=== PATIENT | male | born 1930 | race Caucasian/White ===

== ENCOUNTER 2019-04-19 22:25 | Emergency (ER) | payer MEDICARE, OTHER ==
[~2019-04-19] VITALS: Ht 180.3 cm; Wt 62.1 kg
[~2019-04-19 22:25] MED LIST: AMLO5TAB10 PO; ASPI-630 PO; ATOR40TA59 PO; DOCU-109 PO; Enoxaparin Sodium SQ; GLIM1TAB3 PO; ISOS30TA4 PO; LISI-334 PO; METO25TA2 PO; METO50TA6 PO; POTA10TA12 PO; WARF-31 PO
[2019-04-19] MEDS ORDERED: HYDROcodone/APAP 5/325MG 1 TAB TABLET PO ONE (23:00)
[2019-04-19] MEDS ORDERED: diazePAM 5 MG TABLET PO ONE (23:00)
[2019-04-19 23:02] VITALS: BP 121/73
[2019-04-19] MEDS ORDERED: ACET-704 PO (23:27)
[2019-04-19] MEDS ORDERED: CYCL10TA2 PO (23:27)
--- NOTE | 2019-04-19 23:28 | PHYS DOC ---
Past Medical History Past Medical History: A-Fib, Cancer, COPD, Diabetes-Type II, GERD, High C holesterol, Hypertension Additional Past Medical Histor: CURRENT UNTREATED BLADDER CANCER (TEE PAUL APRN) Past Surgical History: Appendectomy, Other Additional Past Surgical Histo: BLADDER TUMOR REMOVAL 3 YEARS AGO (TEE PAUL APRN) Alcohol Use: None Drug Use: None (TEE PAUL APRN) Adult General Chief Complaint Chief Complaint: HIP PAIN HPI HPI Patient is a 88 year old male with history of A. fib-on Coumadin, hypertension, high cholesterol, diabetes type 2, who presents to the ED today complaining of 10 out of 10 left low back pain radiating to the left hip into the left lower extremity that began a week ago, patient denies any known injury. Denies any numbness or tingling to bilateral lower extremities, denies any loss of bowel bladder function. Patient is in the ED with the doctor who reports patient was seen by the PCP, they did x-rays which were negative. He was instructed to take Tylenol thousand milligrams 3 times a day which he is taking with no relief. He states he cannot take any NSAIDs because is already on Coumadin. (TEE PAUL APRN) Review of Systems Review of Systems Constitutional: Denies fever or chills [] GI: Denies abdominal pain, nausea, vomiting, bloody stools or diarrhea [] : Denies dysuria or hematuria [] Musculoskeletal: Reports left low back pain radiating to the left lower extremity Integument: Denies rash or skin lesions [] Neurologic: Denies headache, focal weakness or sensory changes [] All other systems were reviewed and found to be within normal limits, except as documented in this note. (TEE PAUL APRN) Current Medications Current Medications Current Medications Medications (Trade) Dose Ordered Sig/Mimi Start Time Stop Time Status Last Admin Dose Admin Acetaminophen/ Hydrocodone Bitart (Lortab 5/325) 1 tab 1X ONCE 04/19/19 23:00 04/19/19 23:01 DC 04/19/19 23:09 1 TAB Diazepam (Valium) 5 mg 1X ONCE 04/19/19 23:00 04/19/19 23:01 DC 04/19/19 23:09 5 MG (PARIS GAMBLE MD) Allergies Allergies Allergies Coded Allergies Type Severity Reaction Last Updated Verified Penicillins Allergy Intermediate 08/07/14 Yes (PARIS GAMBLE MD) Physical Exam Physical Exam Constitutional: Well developed, well nourished, no acute distress, non-toxic appearance. [] Abdomen: Bowel sounds normal, soft, no tenderness, no masses, no pulsatile masses. [] Skin: Warm, dry, no erythema, no rash. Bedbugs noted crawling on patient's c lothes Back: No tenderness, no CVA tenderness. [] Extremities: No tenderness, no cyanosis, no clubbing, ROM intact, no edema. Positive straight leg raise to the left lower extremity at approximately 45� Neurologic: Alert and oriented X 3, normal motor function, normal sensory function, no focal deficits noted. [] Psychologic: Affect normal, judgement normal, mood normal. [] (TEE PAUL APRN) Current Patient Data Vital Signs Vital Signs Date Time Temp Pulse Resp B/P (MAP) Pulse Ox O2 Delivery O2 Flow Rate FiO2 04/19/19 23:02 65 18 121/73 (89) 97 Room Air 04/19/19 22:26 97.9 97.9 (PARIS GAMBLE MD) EKG EKG [] (TEE PAUL APRN) Radiology/Procedures Radiology/Procedures [] (TEE PAUL APRN) Course & Med Decision Making Course & Med Decision Making Pertinent Labs and Imaging studies reviewed. (See chart for details) This is a 88-year-old male patient presenting to the ED today with left low back pain radiating to the left lower extremity that began a week ago, patient has been seen by the PCP and had negative x-rays. Was instructed to take Tylenol, patient is not attaining any relief with Tylenol. He has no cauda equina syndrome symptoms. I sent him home with Tylenol 3 and cyclobenzaprine. He is on Coumadin and cannot do NSAIDs. Recommended following up with the PCP next week. (TEE PAUL APRN) Course & Med Decision Making Staff Physician Addendum: I was working in the ER during the course of this patient's visit. I was available for consultation as needed, but I was not directly involved in the care of this patient. (PARIS GAMBLE MD) Dragon Disclaimer Dragon Disclaimer This electronic medical record was generated, in whole or in part, using a voice recognition dictation system. (TEE PAUL APRN) Departure Departure Impression: Primary Impression: Sciatica, left side Disposition: 01 HOME, SELF-CARE Condition: STABLE Referrals: ARACELI ROBINS (PCP) follow up next week Patient Instructions: Sciatica, Whpt-no-Seip Additional Instructions: You were evaluated in the emergency room for sciatica. Take the prescribed medications as ordered, consider getting a heating pad for your back. Follow-up with your doctor next week. Scripts Acetaminophen With Codeine (TYLENOL WITH CODEINE #3 TABLET) 1 Each Tablet 1 TAB PO PRN Q6HRS PRN for PAIN, #20 TAB Prov: TEE PAUL APRN 04/19/19 Cyclobenzaprine Hcl (CYCLOBENZAPRINE HCL) 10 Mg Tablet 1 TAB PO TID, #30 TAB Prov: TEE APUL APRN 04/19/19 TEE PAUL APRN Apr 19, 2019 23:27 PARIS GAMBLE MD Apr 20, 2019 03:56
== END 2019-04-19 23:35 | disposition home or self-care (01) ==
LOC: ER 22:25
DX: M54.42 Lumbago with sciatica, left side (principal); I10 Essential (primary) hypertension; E78.00 Pure hypercholesterolemia, unspecified; I48.91 Unspecified atrial fibrillation; E11.9 Type 2 diabetes mellitus without complications; J44.9 Chronic obstructive pulmonary disease, unspecified; K21.9 Gastro-esophageal reflux disease without esophagitis; Z85.51 Personal history of malignant neoplasm of bladder
CPT/HCPCS: 99284

== ENCOUNTER 2019-04-21 13:30 | Inpatient (IN) | payer MEDICARE ==
[~2019-04-21] VITALS: Ht 180.3 cm; Wt 63.6 kg
[~2019-04-21 13:30] MED LIST changes: +ACET-704 PO; +CYCL10TA2 PO
[2019-04-21] MEDS ORDERED: dilTIAZem IV PUSH 25 MG/5 ML VIAL IVP ONE (14:00)
[2019-04-21 14:11] LABS: CALCIUM 9.7 mg/dL (8.5-10.1); CREATININE 1.8 mg/dL (0.7-1.3); GFR 35.8; POTASSIUM 4.7 mmol/L (3.5-5.1); PROTHROMBIN TIME PATIENT 27.4 SEC (11.7-14.0)
[2019-04-21 14:15] LABS: BASO # 0.1 x10^3/uL (0.0-0.2); BASO % 1 % (0-3); EOS % 0 % (0-3); HEMATOCRIT 31.4 % (39.0-53.0); HEMOGLOBIN 9.8 g/dL (13.0-17.5); LYMPH # 0.3 x10^3/uL (1.0-4.8); LYMPH % 5 % (24-48); MEAN CORPUSCULAR HEMOGLOBIN 24 pg (25-35); MEAN CORPUSCULAR HGB CONC 31 g/dL (31-37); MEAN CORPUSCULAR VOLUME 77 fL (79-100); MONO # 0.4 x10^3/uL (0.0-1.1); MONO % 5 % (0-9); NEUT # 6.4 x10^3/uL (1.8-7.7); NEUT % 89 % (31-73); PLATELET COUNT 338 x10^3/uL (140-400); RED CELL DISTRIBUTION WIDTH 17.5 % (11.5-14.5); WHITE BLOOD COUNT 7.1 x10^3/uL (4.0-11.0)
[2019-04-21 14:17] LABS: ALBUMIN 3.1 g/dL (3.4-5.0); ALBUMIN/GLOBULIN RATIO 0.7 (1.0-1.7); MAGNESIUM 1.4 mg/dL (1.8-2.4); TOTAL PROTEIN 7.8 g/dL (6.4-8.2)
--- NOTE | 2019-04-21 14:18 | RAD ---
Indication: Left hip pain TECHNIQUE: AP pelvis and 2 views of the left hip COMPARISON: None Findings/ impression: Symmetric bilateral hip joints without significant evidence of osteoarthritis. No acute fracture or dislocation. Significant distal colonic and rectal stool burden. Electronically signed by: Ab Jimenez DO (04/21/2019 2:15 PM) [facility]
--- NOTE | 2019-04-21 14:19 | RAD ---
Indication:Chest pain TECHNIQUE:Portable AP chest X-ray COMPARISON: 11/26/2015 FINDINGS: Heart is normal in size. Again seen a calcified left hilar lymph nodes. Lungs are clear. No pneumothorax or pleural effusion. Visualized bony thorax within normal limits. IMPRESSION: No acute pulmonary process. Electronically signed by: Ab Jimenez DO (04/21/2019 2:16 PM) [facility]
[2019-04-21 14:35] LABS: % BANDS 2 % (0-9); % BASOS 2 % (0-3); % LYMPHS 3 % (24-48); % MONOS 4 % (0-10); % SEGS 89 % (35-66); ANISOCYTOSIS SLIGHT; PLT ESTIMATE ADEQUATE (ADEQUATE)
[2019-04-21 14:36] LABS: HYPOCHROMIA SLIGHT
[2019-04-21 14:38] LABS: OVALOCYTES MOD; POIKILOCYTOSIS MOD; SCHISTOCYTES FEW
[2019-04-21 14:39] LABS: ACANTHOCYTES OCC; BURR CELLS OCC; MICROCYTOSIS SLIGHT
--- NOTE | 2019-04-21 15:11 | RAD ---
CT scan of the head without contrast 04/21/2019 Clinical History: Fall. Patient is on blood thinner. Technique: Unenhanced, contiguous, 5 mm axial sections were obtained through the head. One or more of the following individualized dose reduction techniques were utilized for this study: 1. Automated exposure control. 2. Adjustment of the mA and/or kV according to patient size. 3. Use of iterative reconstruction technique. Findings: There is generalized parenchymal atrophy. Areas of decreased attenuation are seen within the periventricular and subcortical white matter of both cerebral hemispheres consistent with areas of small vessel ischemic disease. No acute parenchymal abnormality is seen. No extra-axial fluid collection is noted. No skull fracture is seen. 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 Impression: No acute intracranial abnormality is seen. Electronically signed by: Joshua Tellez MD (04/21/2019 3:08 PM) [facility]
[2019-04-21] MEDS ORDERED: MAGNESIUM SULFATE 2GM 50 ML IV ONE (16:15)
[2019-04-21] MEDS ORDERED: fentaNYL PF VIAL 100 MCG/2 ML VIAL IVP ONE (16:15)
[2019-04-21] MEDS ORDERED: HYDROcodone/APAP 5/325MG 1 TAB TABLET PO ONE (16:15)
--- NOTE | 2019-04-21 16:35 | PHYS DOC ---
Past Medical History Past Medical History: A-Fib, Cancer, COPD, Diabetes-Type II, GERD, High Cholesterol, Hypertension Additional Past Medical Histor: CURRENT UNTREATED BLADDER CANCER Past Surgical History: Appendectomy, Other Additional Past Surgical Histo: BLADDER TUMOR REMOVAL 3 YEARS AGO Alcohol Use: None Drug Use: None Adult General Chief Complaint Chief Complaint: CHEST PAIN HPI HPI Patient is a 88 year old male patient who presents with his daughter with complaining of chest pain and fall. Patient complaining of left hip pain without injury for the last 2 weeks and seen in this emergency room 2 days ago and treated with pain medication with diagnose of pain. Patient states he has more pain today and was not able to walk around with wound care and because of severe pain had a fall. Patient also complaining of intermittent episodes of chest pain since this morning with substernal area without shortness of breath, radiation of pain, dizziness, palpitation, focal neuro deficit. Patient lost his girlfriend of 13 years about one week ago. Review of Systems Review of Systems Constitutional: Denies fever or chills [] Eyes: Denies change in visual acuity, redness, or eye pain [] HENT: Denies nasal congestion or sore throat [] Respiratory: Denies cough or shortness of breath [] Cardiovascular: No additional information not addressed in HPI [] GI: Denies abdominal pain, nausea, vomiting, bloody stools or diarrhea [] : Denies dysuria or hematuria [] Musculoskeletal: Denies back pain, reports joint pain [] Integument: Denies rash or skin lesions [] Neurologic: Denies headache, focal weakness or sensory changes [] Endocrine: Denies polyuria or polydipsia [] All other systems were reviewed and found to be within normal limits, except as documented in this note. Current Medications Current Medications Current Medications Medications (Trade) Dose Ordered Sig/Mimi Start Time Stop Time Status Last Admin Dose Admin Diltiazem HCl (Cardizem Iv Push) 10 mg 1X ONCE 04/21/19 14:00 04/21/19 14:02 DC 04/21/19 14:11 10 MG Magnesium Sulfate 50 ml @ 25 mls/hr 1X ONCE 04/21/19 16:15 04/21/19 18:14 Allergies Allergies Allergies Coded Allergies Type Severity Reaction Last Updated Verified Penicillins Allergy Intermediate 08/07/14 Yes Physical Exam Physical Exam Constitutional: Well nourished, mild distress, non-toxic appearance. [] HENT: Normocephalic, atraumatic. Eyes: Right artificial eye Neck: Normal range of motion, no tenderness, supple, no stridor. [] Cardiovascular: Irregularly irregular rhythm. with tachycardia, no murmur [] Lungs & Thorax: Bilateral breath sounds clear to auscultation [] Abdomen: Bowel sounds normal, soft, no tenderness, no masses, no pulsatile masses. [] Skin: Warm, dry, no erythema, no rash. [] Back: No tenderness, no CVA tenderness. [] Extremities: Left hip without tenderness, no cyanosis, no clubbing, ROM intact, no edema. [] Neurologic: Alert and oriented X 3, no focal deficits noted. [] Psychologic: Affect anxious, judgement normal, mood normal. [] Current Patient Data Vital Signs Vital Signs Date Time Temp Pulse Resp B/P (MAP) Pulse Ox O2 Delivery O2 Flow Rate FiO2 04/21/19 14:44 78 14 99/61 (74) 100 Nasal Cannula 2.0 04/21/19 13:35 99.0 99.0 Lab Values Laboratory Tests Test 04/21/19 13:45 White Blood Count 7.1 x10^3/uL (4.0-11.0) Red Blood Count 4.10 x10^6/uL (4.30-5.70) L Hemoglobin 9.8 g/dL (13.0-17.5) L Hematocrit 31.4 % (39.0-53.0) L Mean Corpuscular Volume 77 fL (79-100) L Mean Corpuscular Hemoglobin 24 pg (25-35) L Mean Corpuscular Hemoglobin Concent 31 g/dL (31-37) Red Cell Distribution Width 17.5 % (11.5-14.5) H Platelet Count 338 x10^3/uL (140-400) Neutrophils (%) (Auto) 89 % (31-73) H Lymphocytes (%) (Auto) 5 % (24-48) L Monocytes (%) (Auto) 5 % (0-9) Eosinophils (%) (Auto) 0 % (0-3) Basophils (%) (Auto) 1 % (0-3) Neutrophils # (Auto) 6.4 x10^3/uL (1.8-7.7) Lymphocytes # (Auto) 0.3 x10^3/uL (1.0-4.8) L Monocytes # (Auto) 0.4 x10^3/uL (0.0-1.1) Eosinophils # (Auto) 0.0 x10^3/uL (0.0-0.7) Basophils # (Auto) 0.1 x10^3/uL (0.0-0.2) Segmented Neutrophils % 89 % (35-66) H Band Neutrophils % 2 % (0-9) Lymphocytes % 3 % (24-48) L Monocytes % 4 % (0-10) Basophils % 2 % (0-3) Platelet Estimate Adequate (ADEQUATE) Hypochromasia Slight Poikilocytosis Mod Anisocytosis Slight Microcytosis Slight Ovalocytes Mod [place] Cells Occ Acanthocytes (Spur Cells) Occ Schistocytes Few Prothrombin Time 27.4 SEC (11.7-14.0) H Prothrombin Time INR 2.6 (0.8-1.1) H Sodium Level 136 mmol/L (136-145) Potassium Level 4.7 mmol/L (3.5-5.1) Chloride Level 98 mmol/L (98-107) Carbon Dioxide Level 26 mmol/L (21-32) Anion Gap 12 (6-14) Blood Urea Nitrogen 41 mg/dL (8-26) H Creatinine 1.8 mg/dL (0.7-1.3) H Estimated GFR (Cockcroft-Gault) 35.8 BUN/Creatinine Ratio 23 (6-20) H Glucose Level 212 mg/dL (70-99) H Calcium Level 9.7 mg/dL (8.5-10.1) Magnesium Level 1.4 mg/dL (1.8-2.4) L Total Bilirubin 1.0 mg/dL (0.2-1.0) Aspartate Amino Transferase (AST) 45 U/L (15-37) H Alanine Aminotransferase (ALT) 18 U/L (16-63) Alkaline Phosphatase 82 U/L (46-116) Creatine Kinase 55 U/L (39-308) Troponin I Quantitative < 0.017 ng/mL (0.000-0.055) ZI-Ote-Q-Type Natriuretic Peptide 3426 pg/mL (0-449) H Total Protein 7.8 g/dL (6.4-8.2) Albumin 3.1 g/dL (3.4-5.0) L Albumin/Globulin Ratio 0.7 (1.0-1.7) L Lipase 205 U/L (73-393) Laboratory Tests 04/21/19 13:45 Laboratory Tests 04/21/19 13:45 EKG EKG EKG interpreted by me. EKG at 1340 showed atrial fibrillation with RVR at rate of 108, abnormal left axis deviation, left anterior fascicular block, right bundle branch block, bifascicular block, no acute ST and T-wave elevation. Radiology/Procedures Radiology/Procedures [][address] [id number] IMAGING REPORT Signed PATIENT: ESTUARDO CHARLES: [id number] : 1930 LOCATION: ER AGE: 88 SEX: M EXAM STATUS: REG ER ORD. PHYSICIAN: MARION VILLARREAL MD REASON: chest pain PROCEDURE: PORTABLE CHEST 1V Indication:Chest pain TECHNIQUE:Portable AP chest X-ray COMPARISON: 11/26/2015 FINDINGS: Heart is normal in size. Again seen a calcified left hilar lymph nodes. Lungs are clear. No pneumothorax or pleural effusion. Visualized bony thorax within normal limits. IMPRESSION: No acute pulmonary process. Electronically signed by: Ab Jimenez DO (04/21/2019 2:16 PM) [facility] DICTATED and SIGNED BY: AB JIMENEZ DO DATE: 04/21/[address] [id number] IMAGING REPORT Signed PATIENT: ESTUARDO CHARLES: [id number] : 1930 LOCATION: ER AGE: 88 SEX: M EXAM STATUS: REG ER ORD. PHYSICIAN: MARION VILLARREAL MD REASON: FALL, ON BLOOD THINNER PROCEDURE: CT HEAD WO CONTRAST CT scan of the head without contrast 04/21/2019 Clinical History: Fall. Patient is on blood thinner. Technique: Unenhanced, contiguous, 5 mm axial sections were obtained through the head. One or more of the following individualized dose reduction techniques were utilized for this study: 1. Automated exposure control. 2. Adjustment of the mA and/or kV according to patient size. 3. Use of iterative reconstruction technique. Findings: There is generalized parenchymal atrophy. Areas of decreased attenuation are seen within the periventricular and subcortical white matter of both cerebral hemispheres consistent with areas of small vessel ischemic disease. No acute parenchymal abnormality is seen. No extra-axial fluid collection is noted. No skull fracture is seen. 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 Impression: No acute intracranial abnormality is seen. Electronically signed by: Phong Tellez MD (04/21/2019 3:08 PM) [facility] DICTATED and SIGNED BY: PHONG TELLEZ MD DATE: 04/21/19 1508 [facility] [address] [place] [address] IMAGING REPORT Signed PATIENT: ESTUARDO CHARLES SACCOUNT: [id number] : 1930 LOCATION: ER AGE: 88 SEX: M EXAM STATUS: REG ER ORD. PHYSICIAN: MARION VILLARREAL MD REASON: left hip pain. hx of sciatica PROCEDURE: HIP LEFT 2V WITH PELVIS Indication: Left hip pain TECHNIQUE: AP pelvis and 2 views of the left hip COMPARISON: None Findings/ impression: Symmetric bilateral hip joints without significant evidence of osteoarthritis. No acute fracture or dislocation. Significant distal colonic and rectal stool burden. Electronically signed by: Ab Jimenez DO (04/21/2019 2:15 PM) [facility] DICTATED and SIGNED BY: AB JIMENEZ DO DATE: 04/21/19 1415 Course & Med Decision Making Course & Med Decision Making Pertinent Labs and Imaging studies reviewed. (See chart for details) Patient requiring admission for further evaluation and treatment. Discussed with Dr. Garcia who is in agreement with admission. Discussed findings and plan with patient and family, who acknowledge understanding and agreement. Dragon Disclaimer Dragon Disclaimer This electronic medical record was generated, in whole or in part, using a voice recognition dictation system. Departure Departure Impression: Primary Impression: Atrial fibrillation with RVR Additional Impressions: Acute chest pain Hypomagnesemia Left hip pain Uncontrolled diabetes mellitus Congestive heart failure Anemia Renal insufficiency Generalized weakness Disposition: 09 ADMITTED INPATIENT (1351) Admitting Physician: Magda Garcia (accepted admission at 1551) Condition: IMPROVED Referrals: ARACELI ROBINS (PCP) The HEART Score for CP Pts HEART Score for Chest Pain: HEART Score for Chest Pain Response (Comments) Value History Moderately Suspicious 1 ECG Nonspecific Repolarizatio 1 Age > 65 2 Risk Factors >3 Risk Factors or Hx CAD 2 Troponin < Normal Limit 0 Total 6 Risk Factors: Risk Factors: DM, Current or recent (<one month) smoker, HTN, HLP, family history of CAD, obesity. Risk Scores: Score 0 - 3: 2.5% MACE over next 6 weeks - Discharge Home Score 4 - 6: 20.3% MACE over next 6 weeks - Admit for Clinical Observation Score 7 - 10: 72.7% MACE over next 6 weeks - Early Invasive Strategies Critical Care Time Critical care time was 50 minutes exclusive of procedures. Problem Qualifiers Additional Impressions: Uncontrolled diabetes mellitus Diabetes mellitus type: other specified (including LIZBET) Glycemic state: with hyperglycemia Qualified Codes: E13.65 - Other specified diabetes mellitus with hyperglycemia Congestive heart failure Heart failure type: unspecified Heart failure chronicity: unspecified Qualified Codes: I50.9 - Heart failure, unspecified Anemia Anemia type: unspecified type Qualified Codes: D64.9 - Anemia, unspecified MARION VILLARREAL MD Apr 21, 2019 16:35
[2019-04-21 17:40] LABS: BILIRUBIN,URINE NEGATIVE (NEG); CLARITY,URINE TURBID; COLOR,URINE YELLOW; NITRITE,URINE NEGATIVE (NEG); PROTEIN,URINE 100 mg/dL (NEG-TRACE); UROBILINOGEN,URINE 0.2 mg/dL (0.2 mg/dL)
[2019-04-21 18:00] LABS: BACTERIA,URINE FEW /HPF (0-FEW); WBC,URINE TNTC /HPF (0-4)
[2019-04-21 18:01] LABS: HYALINE CASTS, URINE MANY /HPF; SQUAMOUS EPITHELIAL CELL,UR OCC /LPF
[2019-04-21 19:15] VITALS: BP 152/85
[2019-04-21 19:30] VITALS: BP 120/84
[2019-04-21 19:45] VITALS: BP 138/81
[2019-04-21 20:00] VITALS: BP 142/74
[2019-04-21] MEDS ORDERED: WARF2.5T83 PO (20:28)
[2019-04-21] MEDS ORDERED: DEXTROSE 50% 25 GM / 50ML DISP.SYRIN. IV PRN (20:30)
[2019-04-21 21:00] VITALS: BP 132/71
[2019-04-21] MEDS ORDERED: CYCLOBENZAPRINE 10 MG TABLET. PO SCH (21:00)
[2019-04-21] MEDS ORDERED: DOCUSATE SODIUM 100 MG CAPSULE. PO SCH (21:00)
[2019-04-21] MEDS ORDERED: LISINOPRIL 20 MG TABLET PO SCH (21:00)
[2019-04-21] MEDS ORDERED: ATORVASTATIN CALCIUM 40 MG TABLET. PO SCH (21:15)
[2019-04-21] MEDS ORDERED: GLIMEPIRIDE 2 MG TABLET. PO SCH (21:15)
[2019-04-21] MEDS: fentaNYL PF VIAL 100 MCG/2 ML VIAL IVP PRN (21:35)
[2019-04-21] MEDS: ACETAMINOPHEN/CODEINE 300/30MG TABLET. PO PRN (21:35)
[2019-04-21 22:00] VITALS: BP 126/94
--- NOTE | 2019-04-21 23:00 | NUR ---
Pt brought to room 113 by ED nurse on bed. Pt stood up and transferred to toilet then bed with 2x assist and walker. Pt reports 8-10/10 pain with left leg/hip movement, causing increased weakness with ambulation. Pts LCTA, VSS, afebrile. Pt stated "The only reason I'm here is to control this pain in my leg. I have nothing else to complain about. I was told my cancer would kill me in 3-6 months and here I am, three years later." Pt requested and received boxed meal after getting settled in the room. Pt does not have medication list with him and stated "You guys should have all my medications I take." Call placed to Dr. Garcia for pain medication to be ordered. Dr. Garcia restarted home meds in the system and started Fentanyl 25 mcg Q4hrs. The RN pulled pt HS meds. Pt stated he no longer takes Lisinopril or Metoprolol, but was unable to state both names and dosages of all meds. The internal communications writer called and spoke with Dr. Garcia again. MD stated "wait until morning then confirm med list with pts daughter. For now, just give pain medication." Pain medications administered PRN. All other medications placed on hold at this time. Pt refused for sliding scale insulin to be put into place. Pt stated "I will only take my oral diabetes medication." Pts BG 191 after eating box dinner. Pt currently resting in bed with eyes closed and call light within reach. Pt reported that between the Fentanyl and Tylenol #3, pain is controlled at this time. Will continue to monitor.
[2019-04-22] VITALS (7 sets, daily range): BP systolic 116–167; BP diastolic 66–87
[2019-04-22] MEDS: ACETAMINOPHEN/CODEINE 300/30MG TABLET. PO PRN ×2 (02:56→22:39)
[2019-04-22] MEDS: fentaNYL PF VIAL 100 MCG/2 ML VIAL IVP PRN (02:56)
[2019-04-22 05:01] LABS: PROTHROMBIN TIME PATIENT 29.9 SEC (11.7-14.0)
[2019-04-22 05:16] LABS: CALCIUM 8.9 mg/dL (8.5-10.1); CREATININE 1.3 mg/dL (0.7-1.3); GFR 52.1; POTASSIUM 4.1 mmol/L (3.5-5.1)
--- NOTE | 2019-04-22 06:26 | EKG ---
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
--- NOTE | 2019-04-22 06:49 | NUR ---
Called and left a message with pts DPOA regarding bringing in med list. Phone number confirmed with patient. Will pass on.
[2019-04-22] MEDS ORDERED: GLIMEPIRIDE 2 MG TABLET. PO SCH (09:00)
[2019-04-22] MEDS ORDERED: POTASSIUM CHLORIDE 10 MEQ TABLET.ER. PO SCH (09:00)
[2019-04-22] MEDS ORDERED: METOPROLOL SUCC 24HR ER 25 MG TAB.ER.24H. PO SCH (09:00)
[2019-04-22] MEDS ORDERED: ASPIRIN CHEWABLE 81 MG TABLET. PO SCH (09:00)
[2019-04-22] MEDS ORDERED: ATORVASTATIN CALCIUM 40 MG TABLET. PO SCH (09:00)
[2019-04-22] MEDS ORDERED: WARFARIN 5 MG TABLET. PO SCH ×2 (09:00→16:00)
[2019-04-22] MEDS ORDERED: amLODIPine BESYLATE 5 MG TABLET PO SCH (09:00)
--- NOTE | 2019-04-22 09:55 | PDOC2 ---
JAXONTHOR Harinder [employer] 04/22/19 0955: CONSULT Date of Consult Date of Consult DATE: 04/22/19 TIME: 09:33 Reason for Consult Reason for Consult: Patient with complaint of left hip pain without history of trauma. Referring Physician Referring Physician: Dr Garcia Identification/Chief Complaint Chief Complaint Left hip pain with reported fall but no specific injury, Source Source: Chart review, Patient History of Present Illness Reason for Visit: Patient with no specific injury but reported diffuse left hip pain for approximately 2 weeks. Past Medical History Cardiovascular: CAD, HTN, Hyperlipidemia Pulmonary: COPD CENTRAL NERVOUS SYSTEM: Other GI: GERD Heme/Onc: No pertinent hx Hepatobiliary: No pertinent hx Psych: No pertinent hx Musculoskeletal: Osteoarthritis Rheumatologic: No pertinent hx Infectious disease: No pertinent hx Renal/: Benign prostatic enlarg., Bladder Ca. Endocrine: Diabetes Past Surgical History Past Surgical History: Appendectomy Family History Family History: Coronary Artery Disease Social History ALCOHOL: none Drugs: None Lives: with Family Domestic Violence: Neg Current Problem List Problem List Problems Medical Problems: (1) Acute chest pain Status: Acute (2) Anemia Status: Acute (3) Atrial fibrillation with RVR Status: Acute (4) Congestive heart failure Status: Acute (5) Generalized weakness Status: Acute (6) Hypomagnesemia Status: Acute (7) Left hip pain Status: Acute (8) Renal insufficiency Status: Acute (9) Uncontrolled diabetes mellitus Status: Acute Current Medications Current Medications Current Medications Diltiazem HCl (Cardizem Iv Push) 10 mg 1X ONCE IVP Last administered on 04/21/19at 14:11; Start 04/21/19 at 14:00; Stop 04/21/19 at 14:02; Status DC Magnesium Sulfate 50 ml @ 25 mls/hr 1X ONCE IV Last administered on 04/21/19at 16:09; Start 04/21/19 at 16:15; Stop 04/21/19 at 18:14; Status DC Acetaminophen/ Hydrocodone Bitart (Lortab 5/325) 1 tab 1X ONCE PO ; Start 04/21/19 at 16:15; Stop 04/21/19 at 16:18; Status DC Fentanyl Citrate (Fentanyl 2ml Vial) 50 mcg 1X ONCE IVP Last administered on 04/21/19at 16:25; Start 04/21/19 at 16:15; Stop 04/21/19 at 16:18; Status DC Acetaminophen/ Codeine Phosphate (Tylenol #3) 1 tab PRN Q6HRS PRN PO PAIN Last administered on 04/22/19at 02:56; Start 04/21/19 at 20:30 Amlodipine Besylate (Norvasc) 5 mg DAILY PO ; Start 04/22/19 at 09:00; Status Hold Aspirin (Children'S Aspirin) 81 mg DAILY PO ; Start 04/22/19 at 09:00; Status Hold Atorvastatin Calcium (Lipitor) 40 mg DAILY PO ; Start 04/22/19 at 09:00; Stop 04/21/19 at 21:05; Status DC Cyclobenzaprine HCl (Flexeril) 10 mg TID PO ; Start 04/21/19 at 21:00; Status Hold Docusate Sodium (Colace) 100 mg BID PO ; Start 04/21/19 at 21:00; Stop 04/22/19 at 00:29; Status DC Lisinopril (Prinivil) 20 mg BID PO ; Start 04/21/19 at 21:00; Status Hold Metoprolol Succinate (Toprol Xl) 25 mg DAILY PO ; Start 04/22/19 at 09:00; Status Hold Potassium Chloride (Klor-Con) 10 meq DAILY PO ; Start 04/22/19 at 09:00; Status Hold Warfarin Sodium (Coumadin) 5 mg DAILY PO ; Start 04/22/19 at 09:00; Stop 04/21/19 at 20:38; Status DC Glimepiride (Amaryl) 1 mg DAILY PO ; Start 04/22/19 at 09:00; Stop 04/21/19 at 21:05; Status DC Fentanyl Citrate (Fentanyl 2ml Vial) 25 mcg PRN Q4HRS PRN IVP PAIN Last administered on 04/22/19at 02:56; Start 04/21/19 at 20:30 Dextrose (Dextrose 50%-Water Syringe) 12.5 gm PRN Q15MIN PRN IV SEE COMMENTS; Start 04/21/19 at 20:30 Warfarin Sodium (Coumadin) 5 mg DAILY16 PO ; Start 04/22/19 at 16:00; Status Hold Warfarin Sodium (Coumadin Per Physician) 1 each PRN DAILY PRN MC SEE COMMENTS; Start 04/21/19 at 20:45 Atorvastatin Calcium (Lipitor) 40 mg QHS PO ; Start 04/21/19 at 21:15; Status Hold Glimepiride (Amaryl) 1 mg QHS PO ; Start 04/21/19 at 21:15; Status Hold Active Scripts Active Tylenol With Codeine #3 Tablet (Acetaminophen/Codeine Phosphate) 1 Each Tablet 1 Tab PO PRN Q6HRS PRN Cyclobenzaprine Hcl 10 Mg Tablet 1 Tab PO TID Warfarin Sodium 5 Mg Tablet 1 Tab PO DAILY [Enoxaparin Sodium] 80 MG/0.8 ML Disp.syrin 70 Mg SQ Q12HR 3 Days Colace (Docusate Sodium) 100 Mg Capsule 100 Mg PO BID Toprol Xl (Metoprolol Succinate) 25 Mg Tab.er.24h 25 Mg PO DAILY Reported Coumadin (Warfarin Sodium) 2.5 Mg Tablet 1 Tab PO DAILY Glimepiride 1 Mg Tablet 1 Tab PO DAILY Atorvastatin Calcium 40 Mg Tablet 1 Tab PO DAILY Aspirin 81 Mg Tab.chew 1 Tab PO DAILY Amlodipine Besylate 5 Mg Tablet 1 Tab PO DAILY Lisinopril 20 Mg Tablet 1 Tab PO BID Potassium Chloride 10 Meq Tablet.er 1 Tab PO DAILY Allergies Allergies: Coded Allergies: Penicillins (Verified Allergy, Intermediate, 08/07/14) Physical Exam General: Oriented X3, Cooperative, mild distress Extremities: Normal pulses, No tenderness/swelling Neuro: Other (antalgic gait when walking with walker) MUSCULOSKELETAL: No joint tenderness, No swelling, Full range of motion without pain (Patient with tansient pain that is in posterior calf on one exam and is not present in the next exam. Inconsistent history and difficult to pinpoint source of reported pain.) Vitals VITALS Vital Signs Date Time Temp Pulse Resp B/P (MAP) Pulse Ox O2 Delivery O2 Flow Rate FiO2 04/22/19 04:00 98.2 71 22 116/66 (83) 99 Room Air 98.2 04/21/19 17:00 2.0 Labs Labs Laboratory Tests Test 04/21/19 13:45 04/21/19 17:28 04/21/19 18:40 04/21/19 21:51 White Blood Count 7.1 x10^3/uL (4.0-11.0) Red Blood Count 4.10 x10^6/uL (4.30-5.70) Hemoglobin 9.8 g/dL (13.0-17.5) Hematocrit 31.4 % (39.0-53.0) Mean Corpuscular Volume 77 fL (79-100) Mean Corpuscular Hemoglobin 24 pg (25-35) Mean Corpuscular Hemoglobin Concent 31 g/dL (31-37) Red Cell Distribution Width 17.5 % (11.5-14.5) Platelet Count 338 x10^3/uL (140-400) Neutrophils (%) (Auto) 89 % (31-73) Lymphocytes (%) (Auto) 5 % (24-48) Monocytes (%) (Auto) 5 % (0-9) Eosinophils (%) (Auto) 0 % (0-3) Basophils (%) (Auto) 1 % (0-3) Neutrophils # (Auto) 6.4 x10^3/uL (1.8-7.7) Lymphocytes # (Auto) 0.3 x10^3/uL (1.0-4.8) Monocytes # (Auto) 0.4 x10^3/uL (0.0-1.1) Eosinophils # (Auto) 0.0 x10^3/uL (0.0-0.7) Basophils # (Auto) 0.1 x10^3/uL (0.0-0.2) Segmented Neutrophils % 89 % (35-66) Band Neutrophils % 2 % (0-9) Lymphocytes % 3 % (24-48) Monocytes % 4 % (0-10) Basophils % 2 % (0-3) Platelet Estimate Adequate (ADEQUATE) Hypochromasia Slight Poikilocytosis Mod Anisocytosis Slight Microcytosis Slight Ovalocytes Mod Bryan Cells Occ Acanthocytes Occ Schistocytes Few Prothrombin Time 27.4 SEC (11.7-14.0) Prothromb Time International Ratio 2.6 (0.8-1.1) Sodium Level 136 mmol/L (136-145) Potassium Level 4.7 mmol/L (3.5-5.1) Chloride Level 98 mmol/L (98-107) Carbon Dioxide Level 26 mmol/L (21-32) Anion Gap 12 (6-14) Blood Urea Nitrogen 41 mg/dL (8-26) Creatinine 1.8 mg/dL (0.7-1.3) Estimated GFR (Cockcroft-Gault) 35.8 BUN/Creatinine Ratio 23 (6-20) Glucose Level 212 mg/dL (70-99) Calcium Level 9.7 mg/dL (8.5-10.1) Magnesium Level 1.4 mg/dL (1.8-2.4) Total Bilirubin 1.0 mg/dL (0.2-1.0) Aspartate Amino Transf (AST/SGOT) 45 U/L (15-37) Alanine Aminotransferase (ALT/SGPT) 18 U/L (16-63) Alkaline Phosphatase 82 U/L (46-116) Creatine Kinase 55 U/L (39-308) Troponin I Quantitative < 0.017 ng/mL (0.000-0.055) < 0.017 ng/mL (0.000-0.055) LC-Erv-N-Type Natriuretic Peptide 3426 pg/mL (0-449) Total Protein 7.8 g/dL (6.4-8.2) Albumin 3.1 g/dL (3.4-5.0) Albumin/Globulin Ratio 0.7 (1.0-1.7) Lipase 205 U/L (73-393) Urine Collection Type Unknown Urine Color Yellow Urine Clarity Turbid Urine pH 5.0 Urine Specific [place] 1.020 Urine Protein 100 mg/dL (NEG-TRACE) Urine Glucose (UA) Negative mg/dL (NEG) Urine Ketones (Stick) Negative mg/dL (NEG) Urine Blood Large (NEG) Urine Nitrite Negative (NEG) Urine Bilirubin Negative (NEG) Urine Urobilinogen Dipstick 0.2 mg/dL (0.2 mg/dL) Urine Leukocyte Esterase Small (NEG) Urine RBC 11-20 /HPF (0-2) Urine WBC Tntc /HPF (0-4) Urine Squamous Epithelial Cells Occ /LPF Urine Bacteria Few /HPF (0-FEW) Urine Hyaline Casts Many /HPF Urine Mucus Marked /LPF Glucose (Fingerstick) 191 mg/dL (70-99) Test 04/21/19 22:00 04/22/19 03:45 04/22/19 09:09 Troponin I Quantitative < 0.017 ng/mL (0.000-0.055) Prothrombin Time 29.9 SEC (11.7-14.0) Prothromb Time International Ratio 2.9 (0.8-1.1) Sodium Level 137 mmol/L (136-145) Potassium Level 4.1 mmol/L (3.5-5.1) Chloride Level 100 mmol/L (98-107) Carbon Dioxide Level 28 mmol/L (21-32) Anion Gap 9 (6-14) Blood Urea Nitrogen 37 mg/dL (8-26) Creatinine 1.3 mg/dL (0.7-1.3) Estimated GFR (Cockcroft-Gault) 52.1 Glucose Level 125 mg/dL (70-99) Calcium Level 8.9 mg/dL (8.5-10.1) Magnesium Level 2.0 mg/dL (1.8-2.4) Glucose (Fingerstick) 57 mg/dL (70-99) Laboratory Tests Test 04/21/19 13:45 04/21/19 17:28 04/21/19 18:40 04/21/19 21:51 White Blood Count 7.1 x10^3/uL (4.0-11.0) Red Blood Count 4.10 x10^6/uL (4.30-5.70) Hemoglobin 9.8 g/dL (13.0-17.5) Hematocrit 31.4 % (39.0-53.0) Mean Corpuscular Volume 77 fL (79-100) Mean Corpuscular Hemoglobin 24 pg (25-35) Mean Corpuscular Hemoglobin Concent 31 g/dL (31-37) Red Cell Distribution Width 17.5 % (11.5-14.5) Platelet Count 338 x10^3/uL (140-400) Neutrophils (%) (Auto) 89 % (31-73) Lymphocytes (%) (Auto) 5 % (24-48) Monocytes (%) (Auto) 5 % (0-9) Eosinophils (%) (Auto) 0 % (0-3) Basophils (%) (Auto) 1 % (0-3) Neutrophils # (Auto) 6.4 x10^3/uL (1.8-7.7) Lymphocytes # (Auto) 0.3 x10^3/uL (1.0-4.8) Monocytes # (Auto) 0.4 x10^3/uL (0.0-1.1) Eosinophils # (Auto) 0.0 x10^3/uL (0.0-0.7) Basophils # (Auto) 0.1 x10^3/uL (0.0-0.2) Segmented Neutrophils % 89 % (35-66) Band Neutrophils % 2 % (0-9) Lymphocytes % 3 % (24-48) Monocytes % 4 % (0-10) Basophils % 2 % (0-3) Platelet Estimate Adequate (ADEQUATE) Hypochromasia Slight Poikilocytosis Mod Anisocytosis Slight Microcytosis Slight Ovalocytes Mod Bryan Cells Occ Acanthocytes Occ Schistocytes Few Prothrombin Time 27.4 SEC (11.7-14.0) Prothromb Time International Ratio 2.6 (0.8-1.1) Sodium Level 136 mmol/L (136-145) Potassium Level 4.7 mmol/L (3.5-5.1) Chloride Level 98 mmol/L (98-107) Carbon Dioxide Level 26 mmol/L (21-32) Anion Gap 12 (6-14) Blood Urea Nitrogen 41 mg/dL (8-26) Creatinine 1.8 mg/dL (0.7-1.3) Estimated GFR (Cockcroft-Gault) 35.8 BUN/Creatinine Ratio 23 (6-20) Glucose Level 212 mg/dL (70-99) Calcium Level 9.7 mg/dL (8.5-10.1) Magnesium Level 1.4 mg/dL (1.8-2.4) Total Bilirubin 1.0 mg/dL (0.2-1.0) Aspartate Amino Transf (AST/SGOT) 45 U/L (15-37) Alanine Aminotransferase (ALT/SGPT) 18 U/L (16-63) Alkaline Phosphatase 82 U/L (46-116) Creatine Kinase 55 U/L (39-308) Troponin I Quantitative < 0.017 ng/mL (0.000-0.055) < 0.017 ng/mL (0.000-0.055) ZC-Tnz-H-Type Natriuretic Peptide 3426 pg/mL (0-449) Total Protein 7.8 g/dL (6.4-8.2) Albumin 3.1 g/dL (3.4-5.0) Albumin/Globulin Ratio 0.7 (1.0-1.7) Lipase 205 U/L (73-393) Urine Collection Type Unknown Urine Color Yellow Urine Clarity Turbid Urine pH 5.0 Urine Specific [place] 1.020 Urine Protein 100 mg/dL (NEG-TRACE) Urine Glucose (UA) Negative mg/dL (NEG) Urine Ketones (Stick) Negative mg/dL (NEG) Urine Blood Large (NEG) Urine Nitrite Negative (NEG) Urine Bilirubin Negative (NEG) Urine Urobilinogen Dipstick 0.2 mg/dL (0.2 mg/dL) Urine Leukocyte Esterase Small (NEG) Urine RBC 11-20 /HPF (0-2) Urine WBC Tntc /HPF (0-4) Urine Squamous Epithelial Cells Occ /LPF Urine Bacteria Few /HPF (0-FEW) Urine Hyaline Casts Many /HPF Urine Mucus Marked /LPF Glucose (Fingerstick) 191 mg/dL (70-99) Test 04/21/19 22:00 04/22/19 03:45 04/22/19 09:09 Troponin I Quantitative < 0.017 ng/mL (0.000-0.055) Prothrombin Time 29.9 SEC (11.7-14.0) Prothromb Time International Ratio 2.9 (0.8-1.1) Sodium Level 137 mmol/L (136-145) Potassium Level 4.1 mmol/L (3.5-5.1) Chloride Level 100 mmol/L (98-107) Carbon Dioxide Level 28 mmol/L (21-32) Anion Gap 9 (6-14) Blood Urea Nitrogen 37 mg/dL (8-26) Creatinine 1.3 mg/dL (0.7-1.3) Estimated GFR (Cockcroft-Gault) 52.1 Glucose Level 125 mg/dL (70-99) Calcium Level 8.9 mg/dL (8.5-10.1) Magnesium Level 2.0 mg/dL (1.8-2.4) Glucose (Fingerstick) 57 mg/dL (70-99) Images Images xray report indicates no significant osteoarthritis noted in either hip. Assessment/Plan Assessment/Plan 88 yo male with reported left hip pain for approximately 2 weeks. Exam unable to recreate pain. Patient states hurts in posterior calf at one moment then groin area on next exam. Patient states unable to walk while standing in room with walker. Patient recently lost significant other. Inconsistent history. Will order MRI left hip to r/o any missed fracture by xray. MARYA OKEEFE II, MD 04/22/19 1039: CONSULT History of Present Illness Reason for Visit: He is complaining of hip and posterior distal thigh pain that is intermittently worse, sometimes worse with weightbearing, sometimes it does not. No definite history of any trauma to the area. He feels the pain starts from his distal thig h and radiates towards his hip and groin at times. He denies any back pain or he denies any calf pain while walking Assessment/Plan Assessment/Plan Patient was seen and evaluated by myself. I examined the patient and review the imaging and formulated the treatment plan. I do think an MRI of his left femur is probably important and safest thing to do to be thorough in his care. TOHR COATES APRN Apr 22, 2019 09:55 MARYA OKEEFE II, MD Apr 22, 2019 10:39
--- NOTE | 2019-04-22 10:32 | PDOC ---
Provider Note Provider Note Pt seen.H&P dictated.#[id number]. WALTER RAYMOND MD Apr 22, 2019 10:32
--- NOTE | 2019-04-22 13:13 | HP ---
ADMIT DATE: 04/21/2019 MEDICAL HISTORY AND PHYSICAL LOCATION: 113. ATTENDING PHYSICIAN: Magda Raymond MD PRIMARY CARE PHYSICIAN: Dr. Andrew Anderson. REASON FOR ADMISSION TO THE HOSPITAL: Pain in the hip and the knee, not able to ambulate, rule out fracture. HISTORY OF PRESENT ILLNESS: The patient is an 88-year-old male, patient of Dr. Anderson, has history of chronic AFib, on Coumadin; diabetes; hypertension; bladder cancer and the patient's recently and says he is doing relatively well, but he had a fall and had more pain with ambulating and the patient was seen in the Emergency Room. X-ray did not reveal fracture, but is not able to ambulate well because of pain, was admitted for orthopedic evaluation and MRI. PAST MEDICAL HISTORY: AFib, bladder cancer, diabetes, hypertension, hyperlipidemia. PAST SURGICAL HISTORY: Appendix, also surgery for the bladder 3 years ago. ALLERGIES: PENICILLIN CAUSES HIVES. MEDICATIONS AT HOME: The patient is on amlodipine 5 mg daily, aspirin 81 mg daily, atorvastatin 40 mg daily, cyclobenzaprine 10 mg 3 times a day, Colace 100 mg daily, glimepiride 1 mg daily, lisinopril 20 mg twice a day, metoprolol 25 mg daily, potassium 10 mEq daily, Coumadin is 5 mg daily. PERSONAL HISTORY: Denies smoking, alcohol, drug abuse. REVIEW OF SYMPTOMS: CARDIAC: No chest pain. GASTROINTESTINAL: No nausea or vomiting. MUSCULOSKELETAL: Complains of pain in the hip and the knee. Rest of the 14-system was reviewed and negative. PHYSICAL EXAMINATION: VITAL SIGNS: Temperature 99, pulse 101, respirations 17, blood pressure 114/67, 94 on room air. HEENT: Head is atraumatic. Pupils equal. Oral cavity: No congestion. NECK: Supple. Thyroid not enlarged. JVD not elevated. CHEST: Symmetrical, COPD pattern. CARDIOVASCULAR: S1, S2. LUNGS: Clear to auscultation. No wheezing. ABDOMEN: Soft, bowel sounds present, no mass palpable. EXTERNAL GENITALIA: No Ortega. RECTAL: Deferred. EXTREMITIES: No calf tenderness, no edema. The patient has pain in the hip area when he extends or lifts the leg off the bed, able to bend his knee. LABORATORY DATA: White count 7, hemoglobin 10, platelets 338. INR 2.6. Electrolytes show sodium 136, potassium 4.7, chloride 98, bicarbonate 26, BUN 41, creatinine 1.8, glucose 212. Magnesium 1.4. Magnesium went up to 2 after replacement. Creatinine came down to 1.3 with fluids and urine shows too many white cells, [address] head was negative. Chest x-ray, no acute process. Had x-ray of the hip and pelvis, no evidence of fracture. FINAL IMPRESSION: 1. Mechanical fall. 2. Left hip pain, rule out fracture. 3. History of bladder cancer, had surgery.3 yrs ago. 4. Chronic atrial fibrillation, on Coumadin. INR is therapeutic. 5. Hypertension. PLAN: At this time is admit to hospital, was seen by Orthopedic, scheduled for MRI. PT/OT and continue Coumadin, monitor INR and see how he improves in the next 24-48 hours. MAGDA RAYMOND MD DR: JUAN DAVID/deshaun JOB#: [id number] / [id number] ANDREW Foy MTDMary Beth
--- NOTE | 2019-04-22 16:46 | NUR ---
SS following for discharge planning. SS reviewed pt chart. Pt is from home and is currently on room air. PT recommended home with assistance. OT ordered. SS will continue to follow for discharge planning.
--- NOTE | 2019-04-22 17:22 | RAD ---
MR of the left femur HISTORY: Thigh and groin pain. TECHNIQUE: Routine multiplanar sequences are obtained through the proximal and mid femur. FINDINGS: Abnormal marrow signal within the left pubic bone, extending into the adjacent superior and inferior pubic rami. There is some cortical ill-definition in this area, thought to be due to destruction. Mild adjacent intramuscular edema. There is also a partially visualized bone lesion at the medial acetabulum. The visualized proximal to mid femur appear intact without destruction or periosteal reaction. Focal atrophy and fatty replacement within the abductor vane muscle with mild edema within the remaining muscle. No organized fluid collection is seen. IMPRESSION: 1. Partially visualized bone lesions at the upper margins of the scan, involving the medial acetabulum, and also at the left pubic bone involving adjacent superior and inferior pubic ramus. These are most concerning for metastatic tumor or myeloma depending on clinical history. Recommend further evaluation, such as with dedicated MRI of the musculoskeletal pelvis and/or nuclear medicine bone scan. 2. Visualized femur appears unremarkable. Electronically signed by: Sacha Jenkins MD (04/22/2019 5:19 PM) [facility]
[2019-04-22] MEDS: WARFARIN 2.5 MG TABLET. PO SCH (17:28)
[2019-04-22] MEDS: CEPHALEXIN 250 MG CAPSULE. PO SCH ×2 (17:29→22:36)
[2019-04-23] VITALS (10 sets, daily range): BP systolic 93–139; BP diastolic 55–94
[2019-04-23] MEDS: CEPHALEXIN 250 MG CAPSULE. PO SCH ×3 (08:37→21:08)
--- NOTE | 2019-04-23 09:44 | PDOC ---
PROGRESS NOTES Subjective Subjective still has pain in hip Objective Objective Vital Signs Date Time Temp Pulse Resp B/P (MAP) Pulse Ox O2 Delivery O2 Flow Rate FiO2 04/23/19 07:00 97.7 67 16 135/63 (87) 97 Room Air 97.7 Intake and Output 04/23/19 06:59 Intake Total 785 ml Output Total 975 ml Balance -190 ml Intake Oral 785 ml Output Urine Total 975 ml # Voids 4 Physical Exam Abdomen: Normal bowel sounds, Soft Heart: Regular rate, Normal S1, Normal S2 Extremities: No clubbing, Normal pulses, No tenderness/swelling General: Oriented X3, Cooperative, mild distress MUSCULOSKELETAL: No joint tenderness, No swelling, Full range of motion without pain (Patient with tansient pain that is in posterior calf on one exam and is not present in the next exam. Inconsistent history and difficult to pinpoint source of reported pain.) Neck: Supple, No JVD Neuro: Normal speech, Other (antalgic gait when walking with walker) Skin: No breakdown Diagnosis Problem List Problems Medical Problems: (1) Acute chest pain Status: Acute (2) Anemia Status: Acute (3) Atrial fibrillation with RVR Status: Acute (4) Congestive heart failure Status: Acute (5) Generalized weakness Status: Acute (6) Hypomagnesemia Status: Acute (7) Left hip pain Status: Acute (8) Renal insufficiency Status: Acute (9) Uncontrolled diabetes mellitus Status: Acute Assessment Assessment Problems Medical Problems: (1) Acute chest pain Status: Acute (2) Anemia Status: Acute (3) Atrial fibrillation with RVR Status: Acute (4) Congestive heart failure Status: Acute (5) Generalized weakness Status: Acute (6) Hypomagnesemia Status: Acute (7) Left hip pain Status: Acute (8) Renal insufficiency Status: Acute (9) Uncontrolled diabetes mellitus Status: Acute FINAL IMPRESSION: 1. Mechanical fall. 2. Left hip pain, rule out fracture. 3. History of bladder cancer, had surgery. 4. Chronic atrial fibrillation, on Coumadin. INR is therapeutic. 5. Hypertension. PLAN: labs ok ,mild anemia abnormal pelvic bone suspecious for mets. h/o bladder cancer. will do ct scan +bone scan oncology consult. At this time is admit to hospital, was seen by Orthopedic, scheduled for MRI. PT/OT and continue Coumadin, monitor INR and see how he improves in the next 24-48 hours. Plan Plan of Care Problems Medical Problems: (1) Acute chest pain Status: Acute (2) Anemia Status: Acute (3) Atrial fibrillation with RVR Status: Acute (4) Congestive heart failure Status: Acute (5) Generalized weakness Status: Acute (6) Hypomagnesemia Status: Acute (7) Left hip pain Status: Acute (8) Renal insufficiency Status: Acute (9) Uncontrolled diabetes mellitus Status: Acute Comment Review of Relevant I have reviewed the following items mary (where applicable) has been applied. Labs Laboratory Tests Test 04/22/19 12:25 04/22/19 17:27 04/22/19 21:21 04/23/19 07:26 Glucose (Fingerstick) 185 mg/dL (70-99) 134 mg/dL (70-99) 138 mg/dL (70-99) 98 mg/dL (70-99) Medications Current Medications Cephalexin HCl (Keflex) 500 mg TID PO Last administered on 04/23/19at 08:37; Start 04/22/19 at 14:00 Warfarin Sodium (Coumadin) 2.5 mg DAILY16 PO Last administered on 04/22/19at 17:28; Start 04/22/19 at 16:00 Warfarin Sodium (Coumadin) 5 mg DAILY16 PO ; Start 04/22/19 at 16:00; Stop 04/22/19 at 12:49; Status DC Vitals/I & O Vital Sign - Last 24 Hours 04/22/19 04/22/19 04/22/19 04/22/19 12:00 17:24 19:45 19:51 Temp 97.7 97.8 97.9 97.7 97.8 97.9 Pulse 82 106 102 Resp 22 22 22 B/P (MAP) 145/79 (101) 141/87 (105) 137/82 (100) Pulse Ox 98 93 94 O2 Delivery Room Air Room Air Room Air Room Air 04/22/19 04/22/19 04/22/19 04/23/19 22:39 23:07 23:45 03:18 Temp 98.0 98.2 98.0 98.2 Pulse 69 60 Resp 20 20 19 B/P (MAP) 167/71 (103) 139/77 (97) Pulse Ox 93 96 94 95 O2 Delivery Room Air Room Air Room Air Room Air 04/23/19 07:00 Temp 97.7 97.7 Pulse 67 Resp 16 B/P (MAP) 135/63 (87) Pulse Ox 97 O2 Delivery Room Air Intake and Output 04/22/19 04/22/19 04/23/19 14:59 22:59 06:59 Intake Total 545 ml 240 ml Output Total 500 ml 475 ml Balance 545 ml -260 ml -475 ml WALTER RAYMOND MD Apr 23, 2019 09:44
[2019-04-23] MEDS ORDERED: IOHEXOL 240 MG/ML 50ML VIAL. PO ONE (10:15)
[2019-04-23] MEDS ORDERED: IOHEXOL 300 MG/ML 100ML VIAL. IV ONE (10:15)
--- NOTE | 2019-04-23 11:55 | RAD ---
PQRS Compliance Statement: One or more of the following individualized dose reduction techniques were utilized for this examination: 1. Automated exposure control 2. Adjustment of the mA and/or kV according to patient size 3. Use of iterative reconstruction technique CT CHEST ABD PELVIS W/CONTRAST 04/23/2019 9:41 AM INDICATION: Bladder cancer with bone metastasis COMPARISON: CT abdomen/pelvis 06/05/2015 TECHNIQUE: Multiple axial CT images of the chest, abdomen and pelvis were obtained after the intravenous administration of 60 mL Omnipaque 300. Coronal and sagittal reformats are provided. FINDINGS: Thyroid gland is normal in appearance. Calcified left hilar lymph nodes are identified. No pathologically enlarged thoracic lymph nodes are identified. Heart size is borderline enlarged. Thoracic aorta is ectatic measuring up to 4.0 cm. There is moderate calcified atheromatous plaque. Three-vessel coronary artery vascular calcifications are present. Centrally calcified solid pulmonary nodule identified in the superior segment right lower lobe measuring 4 mm suggestive of a calcified granuloma. No suspicious solid noncalcified pulmonary nodules are identified. There are no pleural effusions. No pulmonary vascular congestion or pneumothorax. Minimal bibasilar subsegmental atelectasis. Stable cyst in the lateral segment left hepatic lobe measuring 6 mm. Stable 13 mm hypoattenuating lesion in the lateral segment left hepatic lobe cyst of a simple cyst. Adjacent coarse calcification appears stable measuring up to 8 mm. New multiple hypoattenuating lesions are identified within the spleen measuring up to 6.8 x 6.4 cm. Spleen measures 15.6 cm in craniocaudal dimension. Adrenal glands are normal. Findings are suspicious for splenic metastatic disease. There is a single splenic mass which exerts mass effect on the posterior fundus of the stomach. Abdominal aorta is normal in course and caliber. There are no pathologically enlarged lymph nodes in abdomen and pelvis. There is no free fluid or free intraperitoneal air. There is a moderate-sized right inguinal hernia containing loops of nondilated small bowel and fluid. Rectal distention with stool measures 8.1 x 8.3 cm. Oral contrast was administered. Opacified bowel loops since her normal mucosal fold pattern. No bowel obstruction or inflammation. Appendix is not definitively visualized. No pericecal inflammatory changes are identified. Stable hypoattenuating lesion in the interpolar right kidney measuring 7.5 mm, presumed benign given long-term stability. No definite evidence for upper tract disease. Kidneys enhance symmetrically. No suspicious renal mass. There is a new polypoid mass within the urinary bladder along the left posterior lateral bladder wall measuring 5.2 x 5.1 x 3.5 cm (AP by transverse by craniocaudal). Calcification is associated with this mass. Prostate and seminal vesicles are normal. There is an ill-defined lytic lesion involving the medial aspect of the left pubic ramus which corresponds with marrow infiltrating mass. Additionally, there is a soft tissue mass involving the medial left acetabulum measuring approximately 2.0 x 2.1 x 2.1 cm (series 4, image 82) with soft tissue component extending into the joint space. Sclerotic bone lesion is identified involving the right iliac bone measuring 12 mm. IMPRESSION: 1. Dominant posterior, superior left lateral bladder wall mass measures 5.2 x 5.1 x 3.5 cm in keeping with provided history of bladder cancer. No definite evidence for upper tract disease. 2. New multifocal splenic lesions suspicious for metastatic disease. In an immunocompromised state, granulomatous disease or splenic abscesses may have similar appearance. 3. Osseous metastatic disease involving the left pubic ramus and left acetabulum with intra-articular extension to the left femoral acetabular joint. 4. No evidence for metastatic disease involving the chest. 5. Moderate-sized right inguinal hernia containing nondilated loops of small bowel and minimal fluid. 6. Rectal distention with fecal stasis. Correlate with constipation. Electronically signed by: Evelin Aviles MD (04/23/2019 11:52 AM) [facility]
[2019-04-23] MEDS: ISOSORBIDE MONONITRATE ER 30 MG TAB.ER.24H PO SCH (12:49)
[2019-04-23] MEDS: LACTOBACILLUS RHAMNOSUS GG 1 CAPSULE. PO SCH ×2 (12:49→21:07)
--- NOTE | 2019-04-23 15:39 | PDOC2 ---
PALLIATIVE CARE Palliative Care Note Palliative Care Consult requested by Dr Bañuelos to address goals of care Patient admitted with Left sciatic pain, history of badder cancer x3 years; mets to bone, HTN, DM2 GERD, increased lipids, CT chest and abdomen results; 1. Dominant posterior, superior left lateral bladder wall mass measures 5.2 x 5.1 x 3.5 cm in keeping with provided history of bladder cancer. No definite evidence for upper tract disease. 2. New multifocal splenic lesions suspicious for metastatic disease. In an immunocompromised state, granulomatous disease or splenic abscesses may have similar appearance. 3. Osseous metastatic disease involving the left pubic ramus and left acetabulum with intra-articular extension to the left femoral acetabular joint. 4. No evidence for metastatic disease involving the chest. 5. Moderate-sized right inguinal hernia containing nondilated loops of small bowel and minimal fluid. 6. Rectal distention with fecal stasis. Correlate with constipation. Radiation oncology pending Spoke with patient and daughter Ny Patient sitting up in chair; Mild to moderate hip pain. Plan family meeting tomorrow at 1400 when information available. YING BAL Apr 23, 2019 15:39
[2019-04-23] MEDS ORDERED: dilTIAZem IV PUSH 25 MG/5 ML VIAL IVP ONE (16:15)
[2019-04-23] MEDS: WARFARIN 2.5 MG TABLET. PO SCH (16:50)
--- NOTE | 2019-04-23 16:53 | PDOC2 ---
RONI LEONARDO SCROLL SAW OPERATOR 04/23/19 1653: CARDIAC CONSULT DATE OF CONSULT Date of Consult DATE: 04/23/19 TIME: 14:39 REASON FOR CONSULT Reason for Consult: AFIB RVR REFERRING PHYSICIAN Referring Physician: Jose SOURCE Source: Chart review, Patient HISTORY OF PRESENT ILLNESS HISTORY OF PRESENT ILLNESS This is a pleasant 88 yo male admitted for complains of increasing pain to left hip pain. This pain started almost a month ago. His fall was about 2 weeks ago while using his walker. Reports that he basically stumbled with his walker and landed on his butt. No fractures. Denies any chest pain or SOA but does verbalized palpitations. Upion further imaging he has been noted with significant constipation, bladder CA with bone metastasis. He is currently on AFIB RVR. He has not seen a second worker for at least 3 years. He is on warfarin for his AFIB. No prior hx of VTE but unclear about his hx of CAD. Denies frequent dizziness or passing out. PAST MEDICAL HISTORY Past Medical History Cardiovascular: CAD, HTN, Hyperlipidemia, AFIB,PAD Pulmonary: COPD CENTRAL NERVOUS SYSTEM: Other GI: GERD Heme/Onc: No pertinent hx Hepatobiliary: No pertinent hx Psych: No pertinent hx Musculoskeletal: Osteoarthritis Rheumatologic: No pertinent hx Infectious disease: No pertinent hx Renal/: Benign prostatic enlarg., Bladder Ca. Endocrine: Diabetes PAST SURGICAL HISTORY Past Surgical History: Appendectomy FAMILY HISTORY Family History: Coronary Artery Disease SOCIAL HISTORY Smoke: No ALCOHOL: none Drugs: None Lives: with Family CURRENT MEDICATIONS CURRENT MEDICATIONS Current Medications Medications (Trade) Dose Ordered Sig/Mimi Route PRN Reason Start Time Stop Time Status Last Admin Dose Admin Warfarin Sodium (Coumadin) 2.5 mg DAILY16 PO 04/22/19 16:00 04/22/19 17:28 Lactobacillus Rhamnosus (Culturelle) 1 cap BID PO 04/23/19 12:00 04/23/19 12:49 Iohexol (Omnipaque 240 Mg/ml) 50 ml 1X ONCE PO 04/23/19 10:15 04/23/19 10:16 DC 04/23/19 10:15 Iohexol (Omnipaque 300 Mg/ml) 60 ml 1X ONCE IV 04/23/19 10:15 04/23/19 10:16 DC 04/23/19 10:15 Isosorbide Mononitrate (Imdur) 30 mg DAILY PO 04/23/19 12:30 04/23/19 12:49 ALLERGIES ALLERGIES: Coded Allergies: Penicillins (Verified Allergy, Intermediate, 08/07/14) ROS Review of System 14 point ROS evaluated with pertinent positives noted per HPI PHYSICAL EXAM General: Alert, Oriented X3, Cooperative, No acute distress HEENT: Atraumatic, Mucous membr. moist/pink Lungs: Clear to auscultation, Normal air movement Heart: Other (AFIB RVR) Abdomen: Soft, No tenderness Extremities: No cyanosis, No edema Skin: No breakdown, No significant lesion Neuro: Normal speech, Sensation intact Psych/Mental Status: Mental status NL, Mood NL MUSCULOSKELETAL: Osteoarthritic changes both hands VITALS/I&O VITALS/I&O: Vital Signs Date Time Temp Pulse Resp B/P (MAP) Pulse Ox O2 Delivery O2 Flow Rate FiO2 04/23/19 16:02 148 20 Room Air 04/23/19 15:00 97.9 105/65 (78) 94 97.9 I & O 04/22/19 04/23/19 04/23/19 17:00 01:00 09:00 Intake Total 425 ml 240 ml 240 ml Output Total 150 ml 450 ml 375 ml Balance 275 ml -210 ml -135 ml LABS Lab: Laboratory Tests Test 04/22/19 17:27 04/22/19 21:21 04/23/19 07:26 04/23/19 12:35 Glucose (Fingerstick) 134 mg/dL (70-99) H 138 mg/dL (70-99) H 98 mg/dL (70-99) 116 mg/dL (70-99) H ECHOCARDIOGRAM ECHOCARDIOGRAM <Conclusion> The left ventricular systolic function is normal and the ejection fraction is within normal range. The Ejection Fraction is 55-60%. There is mild concentric left ventricular hypertrophy. The right atrium is mildly dilated. Doppler and Color Flow revealed mild aortic regurgitation. Doppler and Color-flow revealed mild mitral regurgitation. Doppler and Color Flow revealed mild to moderate tricuspid regurgitation. The pulmonary artery systolic pressure is estimated at 50-60 mmHg. The IVC is dilated and collapses >50% with inspiration. There is no evidence of significant pericardial effusion. DATE: 08/05/14 4466 ASSESSMENT/PLAN ASSESSMENT/PLAN 1. AFIB RVR: hx of AFIB chronic vs paroxysmal. Initially noted in 2014 2. Atypical chest pain: mainly due to palpitations. 3. Chronic anticoagulation: warfarin INR 2.9 4. Bladder CA with bone metastasis 5. Left hip with nontraumatic fall: 6. CAD: unclear details 7. HTN 8. HLP 9. 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 Continue with warfarin therapy 2. Cardizem bolus with drip 3. TTE, TSH, BMP and Mg. 4. Hemonc and ortho consulted. SHERRELL YU MD 04/23/19 1808: CARDIAC CONSULT ASSESSMENT/PLAN ASSESSMENT/PLAN Patient seen and examined. Agree with above nurse practitioner note. 88-year-old male with chronic atrial fibrillation with fall in the setting of multiple other comorbidities. Check routine echo. He may benefit from an outpatient event monitor to rule out any significant bradycardia. Supportive care for now. RONI LEONARDO APRN Apr 23, 2019 16:53 SHERRELL YU MD Apr 23, 2019 18:08
[2019-04-23] MEDS ORDERED: dilTIAZem INJ 125 MG in IV DEXTROSE 5% 100ML 100 ML IV PRN (17:15)
[2019-04-23 17:32] LABS: CALCIUM 9.2 mg/dL (8.5-10.1); CREATININE 1.4 mg/dL (0.7-1.3); GFR 47.8; POTASSIUM 4.6 mmol/L (3.5-5.1)
[2019-04-23] MEDS: METOPROLOL TART IMMED RELEASE 25 MG TABLET. PO SCH (19:20)
--- NOTE | 2019-04-23 20:36 | CONS ---
DATE OF CONSULTATION: 04/23/2019 REFERRING PHYSICIAN: Alejandro Bañuelos M.D. DIAGNOSIS: Bladder carcinoma treated with surgery alone at [facility] in 09/2016. Initial stage unknown at this time. He now has 2-week history of severe left hip pain with CT revealing recurrence in the bladder and metastatic disease in the left pubic bone and acetabulum. We were asked to see him regarding palliative radiation therapy in his care. ICD-10: C67.9, C79.51. HISTORY OF PRESENT ILLNESS: The patient is an 88-year-old gentleman living independently who has had progressive left hip pain over the last 2 weeks making it difficult to walk over the last week. He took Tylenol with no improvement. Pain exists from the hip to the thigh. He has had no prior history of trauma or falls. He has no pain elsewhere. His urinary function has been stable with no hematuria, no hesitancy, and good flow. He has constipation without other bowel symptoms. He has good appetite. Despite this, he has lost 24 pounds over the last 3 months. He has had no headache, nausea, or vomiting. No lower extremity weakness, numbness, or tingling. Following admission, he has undergone CT scan of the chest, abdomen, and pelvis. Chest reveals bilateral hilar lymph nodes with no overt adenopathy. No suspicious pulmonary nodules noted. Liver reveals no metastatic disease. Spleen reveals several low-density masses compatible with likely metastatic disease. Bladder reveals a 5-cm mass in the posterolateral wall of the bladder with central calcifications. There was a lytic lesion in the posterior aspect of the left pubic ramus with soft tissue mass. Another soft tissue mass was seen in the medial left acetabulum with soft tissue component going into the hip socket. No evidence for hydronephrosis was seen. Findings are compatible with local recurrence of bladder cancer with metastatic disease in the bone of the pubic and acetabular regions of the left pelvis. PAST MEDICAL HISTORY: Remarkable for coronary artery disease, hypertension, hyperlipidemia, COPD, osteoarthritis, and diabetes. CURRENT MEDICATIONS: See hospital list. ALLERGIES: PENICILLIN. FAMILY HISTORY: Brother from bladder cancer in his 60s, daughter here, Ny Solis, had a soft tissue sarcoma resected from her left biceps, treated with muscle-preserving conservative surgery and postoperative radiation therapy 8 years ago. SOCIAL HISTORY: He was 20 years ago. His girlfriend train crew member of 13 years last week. Prior to this, they were living independently together. 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 Nonsmoker and nondrinker. Prior to admission, he enjoyed going to the [employer] playing [employer] and [employer]. He has 9 children, 6 of whom are alive. His daughter, Ny Solis, is his durable power of shrimp peeling machine tender and she is here at this time. PHYSICAL EXAMINATION: GENERAL: Revealed an alert, cooperative, thin elderly man, in no acute distress, able to provide historic information accurately. HEENT: Unremarkable. He had no scleral icterus. LYMPH NODES: He had no palpable cervical or supraclavicular adenopathy. LUNGS: Clear. HEART: Regular. ABDOMEN: No hepatomegaly, masses, or tenderness. EXTREMITIES: Reveal no clubbing, cyanosis, or edema. NEUROLOGIC: Lower extremity strength and sensation intact. Gait, however, was not tested. LABORATORY STUDIES: On 04/21/2019, hemoglobin 9.8, white count 7100, platelet count 338,000. Chemistry panel was unremarkable. Baseline creatinine was 1.3. Calcium level was normal. ASSESSMENT AND PLAN: In summary, my impression is that of locally recurrent and metastatic carcinoma of the bladder. He has bulky primary recurrence and symptomatic metastatic disease in the left acetabulum. At this time, I felt it was rational to consider treatment to the two bone metastases in conjunction with treatment to the recurrent primary site as they are all in close proximity to each other and the addition of treatment to all sites would add minimal toxicity over treatment of the acetabulum alone. I reviewed this in detail with the patient and his daughter. At this time, he is clear that he is willing to consider radiation, but no systemic chemotherapy. I also reviewed with the daughter the need to have advanced directives, which he is engaged in the past and he chooses to have a conservative advanced directive having a no-code status. His daughter is the durable power of shrimp peeling machine tender for his medical decisions. We anticipate simulation to occur by my partner, Dr. Aron Petty, on 04/24/2019 with treatment to follow. Thank you for allowing us to participate in his evaluation. LYNETTE DAMON MD DR: ASHLEY/deshaun JOB#: [id number] / [id number] ARACELI Foy VINAYA MD MTDD
--- NOTE | 2019-04-23 20:38 | CONS ---
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 HISTORY OF PRESENT ILLNESS: The patient is an 88-year-old gentleman who had hematuria in of 2016 and a transurethral resection of the bladder tumor was performed on 03/13/2017, which revealed small cell carcinoma. He was offered neoadjuvant chemotherapy followed by radical cystectomy, but he declined. He chose observation and supportive care only. He was admitted to [facility] on 04/21/2019 with complaints of pain in the left hip. He underwent a CT scan of the chest, abdomen and pelvis on 04/23/2019 which revealed dominant left bladder mass measuring 5.2 cm with new multifocal splenic lesions suspicious for metastatic disease and osseous metastatic disease involving the left pubic ramus and left acetabulum. He underwent MRI of the lower extremity on 04/22/2018 which revealed partially visualized bone lesions at the upper margins of the scan involving the medial acetabulum and the left pubic bone. I was asked to see the patient for further recommendations regarding bladder tumor. PAST MEDICAL HISTORY: Atrial fibrillation, he is on Coumadin, arthritis, bladder cancer, diabetes, dyslipidemia, hyperlipidemia, and hypertension. SOCIAL HISTORY: He is , never smoker. FAMILY HISTORY: Negative for bladder cancer. REVIEW OF SYSTEMS: A 12-point review of system was performed. Pertinent positives are mentioned in the history of present illness. Rest of the system review is negative. PHYSICAL EXAMINATION: GENERAL APPEARANCE: The patient is an 88-year-old gentleman who is well developed, poorly nourished and in no acute cardiorespiratory distress. VITAL SIGNS: Blood pressure 105/65, temperature 97.9. HEENT: Atraumatic, normocephalic. EYES: No icterus. NECK: Supple. CHEST: Bilaterally symmetrical. No crepitations or rhonchi heard. HEART: S1, S2 normal. ABDOMEN: Soft, nontender. CENTRAL NERVOUS SYSTEM: No focal deficits. LYMPHATICS: No lymphadenopathy. SKIN: No rashes. PSYCHOLOGIC: Mood and affect are appropriate. LABORATORY DATA: WBC 7.1, hemoglobin 9.8, and platelet count 338. Creatinine 1.3, AST 45, total bilirubin 1.0, albumin 3.1. IMPRESSION AND PLAN: 1. 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 He was initially diagnosed with localized urinary bladder tumor in 2017 and declined chemotherapy and surgery and has been on supportive care since then. He has now developed metastatic disease consistent with stage IV malignancy. He continues to prefer supportive care only. I have recommended Radiation Oncology consultation for palliative radiation therapy to the left hip and then palliative care consult to proceed with hospice. I discussed with the patient and his daughter in detail and they understand and agree with the plan. 2. Bone metastasis. Plan Radiation Oncology consultation for palliative radiation therapy. 3. Atrial fibrillation. Continue management per Cardiology. KYE ADAMS MD DR: LASHAE/nts JOB#: [id number] / [id number]
--- NOTE | 2019-04-23 20:53 | EKG ---
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
[2019-04-23] MEDS: GLIMEPIRIDE 2 MG TABLET. PO SCH (21:09)
[2019-04-23] MEDS: ATORVASTATIN CALCIUM 40 MG TABLET. PO SCH (21:09)
--- NOTE | 2019-04-23 23:49 | NUR ---
Stopped Cardizem Gtt d/t patient heart rate in the 50's.
[2019-04-24 03:00] VITALS: BP 126/51
--- NOTE | 2019-04-24 04:06 | NUR ---
Midnight dose of Metoprolol held d/t patient HR 45 to low 50's
[2019-04-24 05:24] LABS: CALCIUM 9.3 mg/dL (8.5-10.1); CREATININE 1.5 mg/dL (0.7-1.3); GFR 44.2; POTASSIUM 4.2 mmol/L (3.5-5.1)
[2019-04-24 05:26] LABS: BASO % 0 % (0-3); EOS % 0 % (0-3); HEMATOCRIT 24.1 % (39.0-53.0); HEMOGLOBIN 7.8 g/dL (13.0-17.5); LYMPH # 0.9 x10^3/uL (1.0-4.8); LYMPH % 8 % (24-48); MEAN CORPUSCULAR HEMOGLOBIN 24 pg (25-35); MEAN CORPUSCULAR HGB CONC 32 g/dL (31-37); MEAN CORPUSCULAR VOLUME 76 fL (79-100); MONO # 0.7 x10^3/uL (0.0-1.1); MONO % 7 % (0-9); NEUT # 8.7 x10^3/uL (1.8-7.7); NEUT % 84 % (31-73); PLATELET COUNT 409 x10^3/uL (140-400); PROTHROMBIN TIME PATIENT 23.8 SEC (11.7-14.0); RED BLOOD COUNT 3.18 x10^6/uL (4.30-5.70); RED CELL DISTRIBUTION WIDTH 18.2 % (11.5-14.5); WHITE BLOOD COUNT 10.4 x10^3/uL (4.0-11.0)
[2019-04-24 07:00] VITALS: BP 116/59
[2019-04-24] MEDS: CEPHALEXIN 250 MG CAPSULE. PO SCH ×3 (08:48→20:43)
[2019-04-24] MEDS: ISOSORBIDE MONONITRATE ER 30 MG TAB.ER.24H PO SCH (08:48)
[2019-04-24] MEDS: LACTOBACILLUS RHAMNOSUS GG 1 CAPSULE. PO SCH ×2 (08:48→20:43)
--- NOTE | 2019-04-24 10:26 | PDOC ---
ORTHO PROGRESS NOTES Subjective Patient states no pain this morning when up out of bed. Procedure Left hip pain Vitals Vital Signs Date Time Temp Pulse Resp B/P (MAP) Pulse Ox O2 Delivery O2 Flow Rate FiO2 04/24/19 08:48 70 116/59 04/24/19 07:00 97.8 18 96 Room Air 97.8 Labs Laboratory Tests Test 04/22/19 12:25 04/22/19 17:27 04/22/19 21:21 04/23/19 07:26 Glucose (Fingerstick) 185 mg/dL (70-99) 134 mg/dL (70-99) 138 mg/dL (70-99) 98 mg/dL (70-99) Test 04/23/19 12:35 04/23/19 16:45 04/23/19 17:10 04/23/19 21:16 Glucose (Fingerstick) 116 mg/dL (70-99) 203 mg/dL (70-99) 197 mg/dL (70-99) Sodium Level 134 mmol/L (136-145) Potassium Level 4.6 mmol/L (3.5-5.1) Chloride Level 96 mmol/L (98-107) Carbon Dioxide Level 23 mmol/L (21-32) Anion Gap 15 (6-14) Blood Urea Nitrogen 33 mg/dL (8-26) Creatinine 1.4 mg/dL (0.7-1.3) Estimated GFR (Cockcroft-Gault) 47.8 Glucose Level 232 mg/dL (70-99) Calcium Level 9.2 mg/dL (8.5-10.1) Magnesium Level 1.7 mg/dL (1.8-2.4) Thyroid Stimulating Hormone (TSH) 5.065 uIU/mL (0.358-3.74) Test 04/24/19 04:40 04/24/19 07:45 White Blood Count 10.4 x10^3/uL (4.0-11.0) Red Blood Count 3.18 x10^6/uL (4.30-5.70) Hemoglobin 7.8 g/dL (13.0-17.5) Hematocrit 24.1 % (39.0-53.0) Mean Corpuscular Volume 76 fL (79-100) Mean Corpuscular Hemoglobin 24 pg (25-35) Mean Corpuscular Hemoglobin Concent 32 g/dL (31-37) Red Cell Distribution Width 18.2 % (11.5-14.5) Platelet Count 409 x10^3/uL (140-400) Neutrophils (%) (Auto) 84 % (31-73) Lymphocytes (%) (Auto) 8 % (24-48) Monocytes (%) (Auto) 7 % (0-9) Eosinophils (%) (Auto) 0 % (0-3) Basophils (%) (Auto) 0 % (0-3) Neutrophils # (Auto) 8.7 x10^3/uL (1.8-7.7) Lymphocytes # (Auto) 0.9 x10^3/uL (1.0-4.8) Monocytes # (Auto) 0.7 x10^3/uL (0.0-1.1) Eosinophils # (Auto) 0.0 x10^3/uL (0.0-0.7) Basophils # (Auto) 0.0 x10^3/uL (0.0-0.2) Prothrombin Time 23.8 SEC (11.7-14.0) Prothromb Time International Ratio 2.2 (0.8-1.1) Sodium Level 134 mmol/L (136-145) Potassium Level 4.2 mmol/L (3.5-5.1) Chloride Level 97 mmol/L (98-107) Carbon Dioxide Level 27 mmol/L (21-32) Anion Gap 10 (6-14) Blood Urea Nitrogen 37 mg/dL (8-26) Creatinine 1.5 mg/dL (0.7-1.3) Estimated GFR (Cockcroft-Gault) 44.2 Glucose Level 158 mg/dL (70-99) Calcium Level 9.3 mg/dL (8.5-10.1) Glucose (Fingerstick) 136 mg/dL (70-99) Laboratory Tests Test 04/23/19 12:35 04/23/19 16:45 04/23/19 17:10 04/23/19 21:16 Glucose (Fingerstick) 116 mg/dL (70-99) 203 mg/dL (70-99) 197 mg/dL (70-99) Sodium Level 134 mmol/L (136-145) Potassium Level 4.6 mmol/L (3.5-5.1) Chloride Level 96 mmol/L (98-107) Carbon Dioxide Level 23 mmol/L (21-32) Anion Gap 15 (6-14) Blood Urea Nitrogen 33 mg/dL (8-26) Creatinine 1.4 mg/dL (0.7-1.3) Estimated GFR (Cockcroft-Gault) 47.8 Glucose Level 232 mg/dL (70-99) Calcium Level 9.2 mg/dL (8.5-10.1) Magnesium Level 1.7 mg/dL (1.8-2.4) Thyroid Stimulating Hormone (TSH) 5.065 uIU/mL (0.358-3.74) Test 04/24/19 04:40 04/24/19 07:45 White Blood Count 10.4 x10^3/uL (4.0-11.0) Red Blood Count 3.18 x10^6/uL (4.30-5.70) Hemoglobin 7.8 g/dL (13.0-17.5) Hematocrit 24.1 % (39.0-53.0) Mean Corpuscular Volume 76 fL (79-100) Mean Corpuscular Hemoglobin 24 pg (25-35) Mean Corpuscular Hemoglobin Concent 32 g/dL (31-37) Red Cell Distribution Width 18.2 % (11.5-14.5) Platelet Count 409 x10^3/uL (140-400) Neutrophils (%) (Auto) 84 % (31-73) Lymphocytes (%) (Auto) 8 % (24-48) Monocytes (%) (Auto) 7 % (0-9) Eosinophils (%) (Auto) 0 % (0-3) Basophils (%) (Auto) 0 % (0-3) Neutrophils # (Auto) 8.7 x10^3/uL (1.8-7.7) Lymphocytes # (Auto) 0.9 x10^3/uL (1.0-4.8) Monocytes # (Auto) 0.7 x10^3/uL (0.0-1.1) Eosinophils # (Auto) 0.0 x10^3/uL (0.0-0.7) Basophils # (Auto) 0.0 x10^3/uL (0.0-0.2) Prothrombin Time 23.8 SEC (11.7-14.0) Prothromb Time International Ratio 2.2 (0.8-1.1) Sodium Level 134 mmol/L (136-145) Potassium Level 4.2 mmol/L (3.5-5.1) Chloride Level 97 mmol/L (98-107) Carbon Dioxide Level 27 mmol/L (21-32) Anion Gap 10 (6-14) Blood Urea Nitrogen 37 mg/dL (8-26) Creatinine 1.5 mg/dL (0.7-1.3) Estimated GFR (Cockcroft-Gault) 44.2 Glucose Level 158 mg/dL (70-99) Calcium Level 9.3 mg/dL (8.5-10.1) Glucose (Fingerstick) 136 mg/dL (70-99) Notes awake and alert sitting up in chair at bedside. Assessment and Plan Patient with left hip pain at times. Diagnoses of bladder CA and metastasis scheduled for radiation treatments. No orthopedic treatments recommended THOR COATES APRN Apr 24, 2019 10:26
--- NOTE | 2019-04-24 10:34 | PDOC ---
PROGRESS NOTES Subjective Subjective pain in hip and pelvis Objective Objective Vital Signs Date Time Temp Pulse Resp B/P (MAP) Pulse Ox O2 Delivery O2 Flow Rate FiO2 04/24/19 08:48 70 116/59 04/24/19 07:00 97.8 18 96 Room Air 97.8 Intake and Output 04/24/19 07:00 Intake Total 720 ml Output Total 600 ml Balance 120 ml Intake Oral 720 ml Output Urine Total 100 ml Urine/Stool Mix 500 ml # Voids 5 # Bowel Movements 14 Physical Exam Abdomen: Soft, No tenderness Heart: Other (AFIB RVR) Extremities: No cyanosis, No edema General: Alert, Oriented X3, Cooperative, No acute distress HEENT: Atraumatic, Mucous membr. moist/pink Lungs: Clear to auscultation, Normal air movement MUSCULOSKELETAL: Osteoarthritic changes both hands Neck: Supple, No JVD Neuro: Normal speech, Sensation intact Psych/Mental Status: Mental status NL, Mood NL Skin: No breakdown, No significant lesion Diagnosis Problem List Problems Medical Problems: (1) Acute chest pain Status: Acute (2) Anemia Status: Acute (3) Atrial fibrillation with RVR Status: Acute (4) Congestive heart failure Status: Acute (5) Generalized weakness Status: Acute (6) Hypomagnesemia Status: Acute (7) Left hip pain Status: Acute (8) Renal insufficiency Status: Acute (9) Uncontrolled diabetes mellitus Status: Acute Assessment Assessment Problems Medical Problems: (1) Acute chest pain Status: Acute (2) Anemia Status: Acute (3) Atrial fibrillation with RVR Status: Acute (4) Congestive heart failure Status: Acute (5) Generalized weakness Status: Acute (6) Hypomagnesemia Status: Acute (7) Left hip pain Status: Acute (8) Renal insufficiency Status: Acute (9) Uncontrolled diabetes mellitus Status: Acute FINAL IMPRESSION: stage 4 bladder cancer, bone mets 1. Mechanical fall. 2. Left hip pain, rule out fracture. 3. History of bladder cancer, had surgery. 4. Chronic atrial fibrillation, on Coumadin. INR is therapeutic. 5. Hypertension. PLAN: pallitive radiation starting tomorrow. mapping done today labs ok ,mild anemia abnormal pelvic bone suspecious for mets. h/o bladder cancer.with recreance, stage 4 bone+splen mets oncology consult.appreciated At this time is admit to hospital, was seen by Orthopedic, scheduled for MRI. PT/OT and continue Coumadin, monitor INR and see how he improves in the next 24-48 hours. Plan Plan of Care Problems Medical Problems: (1) Acute chest pain Status: Acute (2) Anemia Status: Acute (3) Atrial fibrillation with RVR Status: Acute (4) Congestive heart failure Status: Acute (5) Generalized weakness Status: Acute (6) Hypomagnesemia Status: Acute (7) Left hip pain Status: Acute (8) Renal insufficiency Status: Acute (9) Uncontrolled diabetes mellitus Status: Acute Comment Review of Relevant I have reviewed the following items mary (where applicable) has been applied. Labs Laboratory Tests Test 04/23/19 12:35 04/23/19 16:45 04/23/19 17:10 04/23/19 21:16 Glucose (Fingerstick) 116 mg/dL (70-99) 203 mg/dL (70-99) 197 mg/dL (70-99) Sodium Level 134 mmol/L (136-145) Potassium Level 4.6 mmol/L (3.5-5.1) Chloride Level 96 mmol/L (98-107) Carbon Dioxide Level 23 mmol/L (21-32) Anion Gap 15 (6-14) Blood Urea Nitrogen 33 mg/dL (8-26) Creatinine 1.4 mg/dL (0.7-1.3) Estimated GFR (Cockcroft-Gault) 47.8 Glucose Level 232 mg/dL (70-99) Calcium Level 9.2 mg/dL (8.5-10.1) Magnesium Level 1.7 mg/dL (1.8-2.4) Thyroid Stimulating Hormone (TSH) 5.065 uIU/mL (0.358-3.74) Test 04/24/19 04:40 04/24/19 07:45 White Blood Count 10.4 x10^3/uL (4.0-11.0) Red Blood Count 3.18 x10^6/uL (4.30-5.70) Hemoglobin 7.8 g/dL (13.0-17.5) Hematocrit 24.1 % (39.0-53.0) Mean Corpuscular Volume 76 fL (79-100) Mean Corpuscular Hemoglobin 24 pg (25-35) Mean Corpuscular Hemoglobin Concent 32 g/dL (31-37) Red Cell Distribution Width 18.2 % (11.5-14.5) Platelet Count 409 x10^3/uL (140-400) Neutrophils (%) (Auto) 84 % (31-73) Lymphocytes (%) (Auto) 8 % (24-48) Monocytes (%) (Auto) 7 % (0-9) Eosinophils (%) (Auto) 0 % (0-3) Basophils (%) (Auto) 0 % (0-3) Neutrophils # (Auto) 8.7 x10^3/uL (1.8-7.7) Lymphocytes # (Auto) 0.9 x10^3/uL (1.0-4.8) Monocytes # (Auto) 0.7 x10^3/uL (0.0-1.1) Eosinophils # (Auto) 0.0 x10^3/uL (0.0-0.7) Basophils # (Auto) 0.0 x10^3/uL (0.0-0.2) Prothrombin Time 23.8 SEC (11.7-14.0) Prothromb Time International Ratio 2.2 (0.8-1.1) Sodium Level 134 mmol/L (136-145) Potassium Level 4.2 mmol/L (3.5-5.1) Chloride Level 97 mmol/L (98-107) Carbon Dioxide Level 27 mmol/L (21-32) Anion Gap 10 (6-14) Blood Urea Nitrogen 37 mg/dL (8-26) Creatinine 1.5 mg/dL (0.7-1.3) Estimated GFR (Cockcroft-Gault) 44.2 Glucose Level 158 mg/dL (70-99) Calcium Level 9.3 mg/dL (8.5-10.1) Glucose (Fingerstick) 136 mg/dL (70-99) Microbiology 04/21/19 Urine Culture - Final, Complete 04/21/19 Urine Culture Result 1 (MEHDI) - Final, Complete Medications Current Medications Atorvastatin Calcium (Lipitor) 40 mg QHS PO Last administered on 04/23/19at 21:09; Start 04/23/19 at 21:00 Diltiazem HCl (Cardizem Iv Push) 10 mg 1X ONCE IVP Last administered on 04/23/19at 16:52; Start 04/23/19 at 16:15; Stop 04/23/19 at 16:16; Status DC Diltiazem HCl 125 mg/Dextrose 125 ml @ 5 mls/hr CONT PRN IV SEE I/O RECORD Last administered on 04/23/19at 17:34; Start 04/23/19 at 17:15 Glimepiride (Amaryl) 2 mg HS PO Last administered on 04/23/19at 21:09; Start 04/23/19 at 21:00 Isosorbide Mononitrate (Imdur) 30 mg DAILY PO Last administered on 04/24/19at 08:48; Start 04/23/19 at 12:30 Lactobacillus Rhamnosus (Culturelle) 1 cap BID PO Last administered on 04/24/19 08:48; Start 04/23/19 at 12:00 Metoprolol Tartrate (Lopressor) 25 mg Q6HRS PO Last administered on 04/23/19 19:20; Start 04/23/19 at 18:30 Vitals/I & O Vital Sign - Last 24 Hours 04/23/19 04/23/19 04/23/19 04/23/19 11:00 12:49 15:00 16:02 Temp 98.1 97.9 98.1 97.9 Pulse 87 87 110 148 Resp 18 18 20 B/P (MAP) 125/77 (93) 125/77 105/65 (78) Pulse Ox 96 94 O2 Delivery Room Air Room Air Room Air 04/23/19 04/23/19 04/23/19 04/23/19 16:52 17:40 17:55 18:10 Pulse 148 106 104 122 B/P (MAP) 105/65 120/79 (93) 120/94 (103) 126/60 (82) 04/23/19 04/23/19 04/23/19 04/23/19 18:25 19:20 20:00 20:15 Temp 97.5 97.5 Pulse 98 98 60 Resp 20 B/P (MAP) 129/62 (84) 129/62 93/63 (73) Pulse Ox 93 O2 Delivery Room Air Room Air 04/23/19 04/24/19 04/24/19 04/24/19 23:00 03:00 07:00 08:48 Temp 97.5 98.0 97.8 97.5 98.0 97.8 Pulse 59 75 60 70 Resp 20 16 18 B/P (MAP) 110/55 (73) 126/51 (76) 116/59 (78) 116/59 Pulse Ox 97 94 96 O2 Delivery Room Air Room Air Room Air Intake and Output 04/23/19 04/23/19 04/24/19 15:00 23:00 07:00 Intake Total 480 ml 240 ml Output Total 100 ml 500 ml Balance 380 ml -260 ml WALTER RAYMOND MD Apr 24, 2019 10:34
[2019-04-24 10:38] VITALS: BP 105/51
--- NOTE | 2019-04-24 11:01 | PDOC ---
FOLLOW UP Mr. Garcia was transported to the radiation oncology department today and successfully underwent CT simulation. Treatment planning is in progress and I anticipate that he will begin palliative radiotherapy tomorrow, 04/25. Please contact our department with any questions. DINESH Mary MD, MD Apr 24, 2019 11:01
[2019-04-24] MEDS: METOPROLOL TART IMMED RELEASE 25 MG TABLET. PO SCH ×3 (12:00→17:15)
--- NOTE | 2019-04-24 13:17 | CARD ---
MR#: [id number] Date of Study: 04/24/2019 Ordering Physician: RONI LEONARDO, Referring Physician: RONI LEONARDO, Tech: Erika Alamo APPROVED REPORT EXAM: Two-dimensional and M-mode echocardiogram with Doppler and color Doppler. Other Information Quality : AverageHR: 87bpm INDICATION Chest Pain 2D DIMENSIONS RVDd2.6 (2.9-3.5cm)Left Atrium(2D)3.5 (1.6-4.0cm) IVSd1.3 (0.7-1.1cm)Aortic Root(2D)3.0 (2.0-3.7cm) LVDd4.9 (3.9-5.9cm)LVOT Diameter2.0 (1.8-2.4cm) PWd1.3 (0.7-1.1cm)LVDs3.3 (2.5-4.0cm) FS (%) 31.9 %SV66.8 ml LVEF(%)59.8 (>50%) Aortic Valve AoV Peak Jones.177.3cm/sAoV VTI34.6cm AO Peak GR.12.6mmHgLVOT VTI 17.45cm AO Mean GR.8mmHgAI P 1/2 [id number] Mitral Valve MV E Dfvfkvwn69.4cm/sMV DECEL [id number] MV A Cfhrdomq94.8cm/sE/A Ratio2.8 TDI Lateral E' P. V13.00cm/sMedial E' P. V8.24cm/s E/Lateral E'7.2E/Medial E'11.3 Tricuspid Valve TR P. Ndjhqwgn236se/sRAP [id number] TR Peak Gr.[id number] LEFT VENTRICLE The left ventricle is normal size. There is moderate concentric left ventricular hypertrophy. The lef t ventricular systolic function is low normal. EF 45% Wall motion consistent with conduction abnormal ity. Mild global hypokinesis. Tissue Doppler imaging reveals moderate left ventricular diastolic dysf unction. RIGHT VENTRICLE The right ventricle is normal size. There is normal right ventricular wall thickness. The right ventr icular systolic function is normal. ATRIA The left atrium is mildly dilated. The right atrium is severely dilated. Interatrial septum bowed tow bran the left, consistent with elevated right atrial pressures. AORTIC VALVE The aortic valve is normal in structure and function. Doppler and Color Flow revealed no significant aortic regurgitation. There is no significant aortic valvular stenosis. There is no aortic valvular v egetation. MITRAL VALVE The mitral valve is normal in structure and function. There is no evidence of mitral valve prolapse. There is no mitral valve stenosis. Doppler and Color Flow revealed no mitral valve regurgitation note d. TRICUSPID VALVE The tricuspid valve is normal in structure and function. Doppler and Color Flow revealed no significa nt tricuspid valve regurgitation noted. There is no tricuspid valve prolapse or vegetation. There is no tricuspid valve stenosis. PULMONIC VALVE Not well visualized. GREAT VESSELS The aortic root is normal in size. The IVC is dilated and collapses <50% with inspiration. PERICARDIAL EFFUSION There is no evidence of significant pericardial effusion. Critical Notification Critical Value: No <Conclusion> The left ventricular systolic function is low normal. EF 45% Wall motion consistent with conduction abnormality. Mild global hypokinesis. The right atrium is severely dilated. Interatrial septum bowed toward the left, consistent with elevated right atrial pressures. The IVC is dilated and collapses <50% with inspiration. Signed by : Tello Bateman, Electronically Approved : 04/24/2019 13:17:00
--- NOTE | 2019-04-24 13:27 | PDOC ---
CARDIO Progress Notes Date and Time Date of Service 04/24/2019 Time of Evaluation 1300 Subjective Subjective: No Chest Pain, No shortness of breath, No Palpitations Vitals Vitals Vital Signs Date Time Temp Pulse Resp B/P (MAP) Pulse Ox O2 Delivery O2 Flow Rate FiO2 04/24/19 12:23 81 04/24/19 10:38 97.8 16 105/51 (69) 97 Room Air 97.8 Weight Weight [ ] Input and Output Intake and Output Intake and Output 04/24/19 06:59 Intake Total 720 ml Output Total 600 ml Balance 120 ml Intake Oral 720 ml Output Urine Total 100 ml Urine/Stool Mix 500 ml # Voids 5 # Bowel Movements 14 Laboratory Labs Laboratory Tests Test 04/23/19 16:45 04/23/19 17:10 04/23/19 21:16 04/24/19 04:40 Glucose (Fingerstick) 203 mg/dL (70-99) 197 mg/dL (70-99) Sodium Level 134 mmol/L (136-145) 134 mmol/L (136-145) Potassium Level 4.6 mmol/L (3.5-5.1) 4.2 mmol/L (3.5-5.1) Chloride Level 96 mmol/L (98-107) 97 mmol/L (98-107) Carbon Dioxide Level 23 mmol/L (21-32) 27 mmol/L (21-32) Anion Gap 15 (6-14) 10 (6-14) Blood Urea Nitrogen 33 mg/dL (8-26) 37 mg/dL (8-26) Creatinine 1.4 mg/dL (0.7-1.3) 1.5 mg/dL (0.7-1.3) Estimated GFR (Cockcroft-Gault) 47.8 44.2 Glucose Level 232 mg/dL (70-99) 158 mg/dL (70-99) Calcium Level 9.2 mg/dL (8.5-10.1) 9.3 mg/dL (8.5-10.1) Magnesium Level 1.7 mg/dL (1.8-2.4) Thyroid Stimulating Hormone (TSH) 5.065 uIU/mL (0.358-3.74) White Blood Count 10.4 x10^3/uL (4.0-11.0) Red Blood Count 3.18 x10^6/uL (4.30-5.70) Hemoglobin 7.8 g/dL (13.0-17.5) Hematocrit 24.1 % (39.0-53.0) Mean Corpuscular Volume 76 fL (79-100) Mean Corpuscular Hemoglobin 24 pg (25-35) Mean Corpuscular Hemoglobin Concent 32 g/dL (31-37) Red Cell Distribution Width 18.2 % (11.5-14.5) Platelet Count 409 x10^3/uL (140-400) Neutrophils (%) (Auto) 84 % (31-73) Lymphocytes (%) (Auto) 8 % (24-48) Monocytes (%) (Auto) 7 % (0-9) Eosinophils (%) (Auto) 0 % (0-3) Basophils (%) (Auto) 0 % (0-3) Neutrophils # (Auto) 8.7 x10^3/uL (1.8-7.7) Lymphocytes # (Auto) 0.9 x10^3/uL (1.0-4.8) Monocytes # (Auto) 0.7 x10^3/uL (0.0-1.1) Eosinophils # (Auto) 0.0 x10^3/uL (0.0-0.7) Basophils # (Auto) 0.0 x10^3/uL (0.0-0.2) Prothrombin Time 23.8 SEC (11.7-14.0) Prothromb Time International Ratio 2.2 (0.8-1.1) Test 04/24/19 07:45 04/24/19 12:03 Glucose (Fingerstick) 136 mg/dL (70-99) 168 mg/dL (70-99) Microbiology Micro Microbiology 04/21/19 Urine Culture - Final, Complete 04/21/19 Urine Culture Result 1 (MEHDI) - Final, Complete Physical Exam HEENT: Neck Supple W Full Motion Chest: Symmetric LUNGS: Other (diminished bases) Heart: irregularly irregular (AFIB) Abdomen: Soft N/T Extremities: No Calf Tenderness Neurology: alert, oriented, follow commands Assessment Assessment 1. AFIB RVR: possibly chronic, remains on AFIB rate controlled 2. Atypical chest pain: mainly due to palpitations. 3. Chronic anticoagulation: warfarin INR 2.2 4. Bladder CA with bone metastasis 5. Left hip pain with nontraumatic fall: 6. CAD: unclear details 7. HTN: low marginal 8. HLP 9. DM2 10. Chronic RBBB/LAFB 11. Microcytic anemia: trending down to 7.8 from 9.8. no Obvious bleed 12. KEERTHI: BUN increasing. Cr at 1.5. Post contrast. 13. Right inguinal hernia with nondilated loop of small bowel. Defer to PCP 14. Mild CM: EF 45%. Appears compensated. RA dilation Recommendations 1. Continue with warfarin therapy. Will consider holding pending delineation of his anemia and inguinal hernia. 2. Cardizem drip stopped last night due to bradycardia but was noted concurrent with BB. DC cardizem drip and continue with metoprolol. 3. Follow Hemonc recommendation, ?prognosis 4. Hemoccult stool 5. Poor PO intake start on low maintenance IVF. RONI LEONARDO APRN Apr 24, 2019 13:27
[2019-04-24 14:43] VITALS: BP 98/51
--- NOTE | 2019-04-24 16:28 | NUR ---
SS following up with discharge planning. Pt and pt's family requesting referral to [facility], ; fax [phone]. SS phoned and faxed referral to [facility]. SS will await acceptance decision and will proceed accordingly with discharge planning.
[2019-04-24] MEDS: WARFARIN 2.5 MG TABLET. PO SCH (17:14)
[2019-04-24] MEDS: IV NORMAL SALINE 1000ML BAG 1,000 ML IV SCH (17:17)
--- NOTE | 2019-04-24 17:37 | PDOC2 ---
PALLIATIVE CARE Palliative Care Note Palliative Care Patient alert. Participated in conversation. He is able to verbalize his medical condition. Met with DPOA Daughter Rafaela and her . They have met with Dr. Ray and understand the purpose of Radiation treatments to painful hip area. Reviewed copy of AD/DPOA. Plan is for patient to go to [facility] while receiving Radiation treatments--not sure if 10 treatments or 5 treatments. Confirmed Code Status; DNR/DNI. Outside the Hospital DNR/DNI form signed by daughter at the request of patient. Patient would like to go to of [facility] on Monday. Plan: Radiation Therapy as planned. DNR/DNI [facility] for [facility] PT/OT YING BAL Apr 24, 2019 17:37
[2019-04-24 19:37] VITALS: BP 154/67
[2019-04-24] MEDS: ATORVASTATIN CALCIUM 40 MG TABLET. PO SCH (20:43)
[2019-04-24] MEDS: GLIMEPIRIDE 2 MG TABLET. PO SCH (20:43)
[2019-04-24 22:15] LABS: FECAL OB PT POSITIVE (NEG)
[2019-04-24 22:38] VITALS: BP 133/71
[2019-04-25 02:07] VITALS: BP 145/65
[2019-04-25 06:05] LABS: PROTHROMBIN TIME PATIENT 22.2 SEC (11.7-14.0)
[2019-04-25] MEDS: METOPROLOL TART IMMED RELEASE 25 MG TABLET. PO SCH ×3 (06:05→13:13)
[2019-04-25 07:00] VITALS: BP 147/67
[2019-04-25] MEDS: ACETAMINOPHEN/CODEINE 300/30MG TABLET. PO PRN (08:36)
[2019-04-25] MEDS: CEPHALEXIN 250 MG CAPSULE. PO SCH (08:37)
[2019-04-25] MEDS: LACTOBACILLUS RHAMNOSUS GG 1 CAPSULE. PO SCH ×2 (08:37→21:07)
[2019-04-25] MEDS: ISOSORBIDE MONONITRATE ER 30 MG TAB.ER.24H PO SCH (08:37)
[2019-04-25] MEDS: IV NORMAL SALINE 1000ML BAG 1,000 ML IV SCH (08:41)
[2019-04-25 10:12] LABS: HEMATOCRIT 22.4 % (39.0-53.0); HEMOGLOBIN 7.2 g/dL (13.0-17.5); RED BLOOD COUNT 2.91 x10^6/uL (4.30-5.70); RED CELL DISTRIBUTION WIDTH 18.5 % (11.5-14.5); WHITE BLOOD COUNT 9.1 x10^3/uL (4.0-11.0)
--- NOTE | 2019-04-25 10:13 | PDOC ---
PROGRESS NOTES Subjective Subjective constipation Objective Objective Vital Signs Date Time Temp Pulse Resp B/P (MAP) Pulse Ox O2 Delivery O2 Flow Rate FiO2 04/25/19 09:36 Room Air 04/25/19 08:37 74 147/67 04/25/19 07:00 98.1 18 96 98.1 Intake and Output 04/25/19 07:00 Intake Total 720 ml Output Total 100 ml Balance 620 ml Intake Oral 720 ml Output Urine Total 100 ml # Voids 8 # Bowel Movements 8 Physical Exam Abdomen: Soft, No tenderness Heart: Other (AFIB RVR) Extremities: No cyanosis, No edema General: Alert, Oriented X3, Cooperative, No acute distress HEENT: Atraumatic, Mucous membr. moist/pink Lungs: Clear to auscultation, Normal air movement MUSCULOSKELETAL: Osteoarthritic changes both hands Neck: Supple, No JVD Neuro: Normal speech, Sensation intact Psych/Mental Status: Mental status NL, Mood NL Skin: No breakdown, No significant lesion Diagnosis Problem List Problems Medical Problems: (1) Acute chest pain Status: Acute (2) Anemia Status: Acute (3) Atrial fibrillation with RVR Status: Acute (4) Congestive heart failure Status: Acute (5) Generalized weakness Status: Acute (6) Hypomagnesemia Status: Acute (7) Left hip pain Status: Acute (8) Renal insufficiency Status: Acute (9) Uncontrolled diabetes mellitus Status: Acute Assessment Assessment Problems Medical Problems: (1) Acute chest pain Status: Acute (2) Anemia Status: Acute (3) Atrial fibrillation with RVR Status: Acute (4) Congestive heart failure Status: Acute (5) Generalized weakness Status: Acute (6) Hypomagnesemia Status: Acute (7) Left hip pain Status: Acute (8) Renal insufficiency Status: Acute (9) Uncontrolled diabetes mellitus Status: Acute FINAL IMPRESSION: stage 4 bladder cancer, bone mets 1. Mechanical fall. 2. Left hip pain, rule out fracture. 3. History of bladder cancer, had surgery. 4. Chronic atrial fibrillation, on Coumadin. INR is therapeutic. 5. Hypertension. PLAN:snu screen iv fluids for renal insufficiency. pallitive radiation starting today daily for 5 treatments. miralax for constipation. urine mixed juanjo 25,000 ,d/c keflex labs ok ,mild anemia abnormal pelvic bone suspecious for mets. h/o bladder cancer.with recreance, stage 4 bone+spleen mets oncology consult.appreciated. 45% ejf on ECHO. DNR. At this time is admit to hospital, was seen by Orthopedic, scheduled for MRI. PT/OT and continue Coumadin, monitor INR and see how he improves in the next 24-48 hours. Plan Plan of Care Problems Medical Problems: (1) Acute chest pain Status: Acute (2) Anemia Status: Acute (3) Atrial fibrillation with RVR Status: Acute (4) Congestive heart failure Status: Acute (5) Generalized weakness Status: Acute (6) Hypomagnesemia Status: Acute (7) Left hip pain Status: Acute (8) Renal insufficiency Status: Acute (9) Uncontrolled diabetes mellitus Status: Acute Comment Review of Relevant I have reviewed the following items mary (where applicable) has been applied. Labs Laboratory Tests Test 04/24/19 12:03 04/24/19 16:25 04/24/19 16:51 04/24/19 20:40 Glucose (Fingerstick) 168 mg/dL (70-99) 278 mg/dL (70-99) 241 mg/dL (70-99) Stool Occult Blood Positive (NEG) Test 04/25/19 05:30 04/25/19 07:28 Prothrombin Time 22.2 SEC (11.7-14.0) Prothromb Time International Ratio 2.0 (0.8-1.1) Glucose (Fingerstick) 98 mg/dL (70-99) Microbiology 04/21/19 Urine Culture - Final, Complete 04/21/19 Urine Culture Result 1 (MEHDI) - Final, Complete Medications Current Medications Sodium Chloride 1,000 ml @ 60 mls/hr [id number] IV Last administered on 04/25/19at 08:41; Start 04/24/19 at 16:30 Vitals/I & O Vital Sign - Last 24 Hours 04/24/19 04/24/19 04/24/19 04/24/19 10:38 12:00 12:23 14:43 Temp 97.8 97.7 97.8 97.7 Pulse 67 85 81 60 Resp 16 16 B/P (MAP) 105/51 (69) 98/51 (67) Pulse Ox 97 95 O2 Delivery Room Air Room Air 04/24/19 04/24/19 04/24/19 04/24/19 17:15 19:37 19:58 22:38 Temp 97.8 97.7 97.8 97.7 Pulse 72 69 75 Resp 16 16 B/P (MAP) 154/67 (96) 133/71 (91) Pulse Ox 97 96 O2 Delivery Room Air Room Air Room Air 04/25/19 04/25/19 04/25/19 04/25/19 00:00 02:07 06:05 07:00 Temp 97.9 98.1 97.9 98.1 Pulse 68 55 70 62 Resp 18 18 B/P (MAP) 133/71 145/65 (91) 133/60 147/67 (93) Pulse Ox 97 96 O2 Delivery Room Air Room Air 04/25/19 04/25/19 08:37 09:36 Pulse 74 B/P (MAP) 147/67 O2 Delivery Room Air Intake and Output 04/24/19 04/24/19 04/25/19 15:00 23:00 07:00 Intake Total 360 ml 120 ml 240 ml Output Total 100 ml Balance 360 ml 120 ml 140 ml WALTER RAYMOND MD Apr 25, 2019 10:13
[2019-04-25 10:50] LABS: CALCIUM 8.5 mg/dL (8.5-10.1); CREATININE 1.1 mg/dL (0.7-1.3); GFR 63.2; POTASSIUM 4.2 mmol/L (3.5-5.1)
[2019-04-25 11:00] VITALS: BP 113/69
--- NOTE | 2019-04-25 11:36 | PDOC2 ---
PALLIATIVE CARE Palliative Care Note Palliative Care Spoke with daughter Ny ([phone]) Informed plan is for 5 radiation treatments. Daughter wants patient to go to [facility]. Understands he may need more long term care pharmacist arrangements depending on Therapy etc. YING BAL Apr 25, 2019 11:36
--- NOTE | 2019-04-25 12:07 | PDOC ---
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 - has constipation Objective Objective Vital Signs Date Time Temp Pulse Resp B/P (MAP) Pulse Ox O2 Delivery O2 Flow Rate FiO2 04/25/19 11:00 98.4 61 18 113/69 (84) 99 Room Air 98.4 04/21/19 17:00 2.0 Intake and Output 04/25/19 07:00 Intake Total 720 ml Output Total 100 ml Balance 620 ml Intake Oral 720 ml Output Urine Total 100 ml # Voids 8 # Bowel Movements 8 Physical Exam Heart: Normal S1, Normal S2 General: Alert, Oriented X3 Lungs: Clear to auscultation Neuro: Normal speech Assessment Assessment Problems Medical Problems: (1) Acute chest pain Status: Acute (2) Anemia Status: Acute (3) Atrial fibrillation with RVR Status: Acute (4) Congestive heart failure Status: Acute (5) Generalized weakness Status: Acute (6) Hypomagnesemia Status: Acute (7) Left hip pain Status: Acute (8) Renal insufficiency Status: Acute (9) Uncontrolled diabetes mellitus Status: Acute IMPRESSION AND PLAN: 1. 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 He was initially diagnosed with localized urinary bladder tumor in 2017 and declined chemotherapy and surgery and has been on supportive care since then. He has now developed metastatic disease consistent with stage IV malignancy. He continues to prefer supportive care only. I have recommended Radiation Oncology consultation for palliative radiation therapy to the left hip and then palliative care consult to proceed with hospice. I discussed with the patient and his daughter in detail and they understand and agree with the plan. 2. Bone metastasis. Appreciate Radiation Oncology consultation for palliative radiation therapy. 3. Atrial fibrillation. Continue management per Cardiology. Comment Review of Relevant I have reviewed the following items mary (where applicable) has been applied. Labs Laboratory Tests Test 04/23/19 12:35 04/23/19 16:45 04/23/19 17:10 04/23/19 21:16 Glucose (Fingerstick) 116 mg/dL (70-99) 203 mg/dL (70-99) 197 mg/dL (70-99) Sodium Level 134 mmol/L (136-145) Potassium Level 4.6 mmol/L (3.5-5.1) Chloride Level 96 mmol/L (98-107) Carbon Dioxide Level 23 mmol/L (21-32) Anion Gap 15 (6-14) Blood Urea Nitrogen 33 mg/dL (8-26) Creatinine 1.4 mg/dL (0.7-1.3) Estimated GFR (Cockcroft-Gault) 47.8 Glucose Level 232 mg/dL (70-99) Calcium Level 9.2 mg/dL (8.5-10.1) Magnesium Level 1.7 mg/dL (1.8-2.4) Thyroid Stimulating Hormone (TSH) 5.065 uIU/mL (0.358-3.74) Test 04/24/19 04:40 04/24/19 07:45 04/24/19 12:03 04/24/19 16:25 White Blood Count 10.4 x10^3/uL (4.0-11.0) Red Blood Count 3.18 x10^6/uL (4.30-5.70) Hemoglobin 7.8 g/dL (13.0-17.5) Hematocrit 24.1 % (39.0-53.0) Mean Corpuscular Volume 76 fL (79-100) Mean Corpuscular Hemoglobin 24 pg (25-35) Mean Corpuscular Hemoglobin Concent 32 g/dL (31-37) Red Cell Distribution Width 18.2 % (11.5-14.5) Platelet Count 409 x10^3/uL (140-400) Neutrophils (%) (Auto) 84 % (31-73) Lymphocytes (%) (Auto) 8 % (24-48) Monocytes (%) (Auto) 7 % (0-9) Eosinophils (%) (Auto) 0 % (0-3) Basophils (%) (Auto) 0 % (0-3) Neutrophils # (Auto) 8.7 x10^3/uL (1.8-7.7) Lymphocytes # (Auto) 0.9 x10^3/uL (1.0-4.8) Monocytes # (Auto) 0.7 x10^3/uL (0.0-1.1) Eosinophils # (Auto) 0.0 x10^3/uL (0.0-0.7) Basophils # (Auto) 0.0 x10^3/uL (0.0-0.2) Prothrombin Time 23.8 SEC (11.7-14.0) Prothromb Time International Ratio 2.2 (0.8-1.1) Sodium Level 134 mmol/L (136-145) Potassium Level 4.2 mmol/L (3.5-5.1) Chloride Level 97 mmol/L (98-107) Carbon Dioxide Level 27 mmol/L (21-32) Anion Gap 10 (6-14) Blood Urea Nitrogen 37 mg/dL (8-26) Creatinine 1.5 mg/dL (0.7-1.3) Estimated GFR (Cockcroft-Gault) 44.2 Glucose Level 158 mg/dL (70-99) Calcium Level 9.3 mg/dL (8.5-10.1) Glucose (Fingerstick) 136 mg/dL (70-99) 168 mg/dL (70-99) Stool Occult Blood Positive (NEG) Test 04/24/19 16:51 04/24/19 20:40 04/25/19 05:30 04/25/19 07:28 Glucose (Fingerstick) 278 mg/dL (70-99) 241 mg/dL (70-99) 98 mg/dL (70-99) White Blood Count 9.1 x10^3/uL (4.0-11.0) Red Blood Count 2.91 x10^6/uL (4.30-5.70) Hemoglobin 7.2 g/dL (13.0-17.5) Hematocrit 22.4 % (39.0-53.0) Mean Corpuscular Volume 77 fL (79-100) Mean Corpuscular Hemoglobin 25 pg (25-35) Mean Corpuscular Hemoglobin Concent 32 g/dL (31-37) Red Cell Distribution Width 18.5 % (11.5-14.5) Platelet Count 394 x10^3/uL (140-400) Prothrombin Time 22.2 SEC (11.7-14.0) Prothromb Time International Ratio 2.0 (0.8-1.1) Sodium Level 137 mmol/L (136-145) Potassium Level 4.2 mmol/L (3.5-5.1) Chloride Level 101 mmol/L (98-107) Carbon Dioxide Level 27 mmol/L (21-32) Anion Gap 9 (6-14) Blood Urea Nitrogen 32 mg/dL (8-26) Creatinine 1.1 mg/dL (0.7-1.3) Estimated GFR (Cockcroft-Gault) 63.2 Glucose Level 102 mg/dL (70-99) Calcium Level 8.5 mg/dL (8.5-10.1) Test 04/25/19 11:41 Glucose (Fingerstick) 124 mg/dL (70-99) Laboratory Tests Test 04/24/19 16:25 04/24/19 16:51 04/24/19 20:40 04/25/19 05:30 Stool Occult Blood Positive (NEG) Glucose (Fingerstick) 278 mg/dL (70-99) 241 mg/dL (70-99) White Blood Count 9.1 x10^3/uL (4.0-11.0) Red Blood Count 2.91 x10^6/uL (4.30-5.70) Hemoglobin 7.2 g/dL (13.0-17.5) Hematocrit 22.4 % (39.0-53.0) Mean Corpuscular Volume 77 fL (79-100) Mean Corpuscular Hemoglobin 25 pg (25-35) Mean Corpuscular Hemoglobin Concent 32 g/dL (31-37) Red Cell Distribution Width 18.5 % (11.5-14.5) Platelet Count 394 x10^3/uL (140-400) Prothrombin Time 22.2 SEC (11.7-14.0) Prothromb Time International Ratio 2.0 (0.8-1.1) Sodium Level 137 mmol/L (136-145) Potassium Level 4.2 mmol/L (3.5-5.1) Chloride Level 101 mmol/L (98-107) Carbon Dioxide Level 27 mmol/L (21-32) Anion Gap 9 (6-14) Blood Urea Nitrogen 32 mg/dL (8-26) Creatinine 1.1 mg/dL (0.7-1.3) Estimated GFR (Cockcroft-Gault) 63.2 Glucose Level 102 mg/dL (70-99) Calcium Level 8.5 mg/dL (8.5-10.1) Test 04/25/19 07:28 04/25/19 11:41 Glucose (Fingerstick) 98 mg/dL (70-99) 124 mg/dL (70-99) Microbiology 04/21/19 Urine Culture - Final, Complete 04/21/19 Urine Culture Result 1 (MEHDI) - Final, Complete Medications Current Medications Diltiazem HCl (Cardizem Iv Push) 10 mg 1X ONCE IVP Last administered on 04/21/19at 14:11; Start 04/21/19 at 14:00; Stop 04/21/19 at 14:02; Status DC Magnesium Sulfate 50 ml @ 25 mls/hr 1X ONCE IV Last administered on 04/21/19at 16:09; Start 04/21/19 at 16:15; Stop 04/21/19 at 18:14; Status DC Acetaminophen/ Hydrocodone Bitart (Lortab 5/325) 1 tab 1X ONCE PO ; Start 04/21/19 at 16:15; Stop 04/21/19 at 16:18; Status DC Fentanyl Citrate (Fentanyl 2ml Vial) 50 mcg 1X ONCE IVP Last administered on 04/21/19at 16:25; Start 04/21/19 at 16:15; Stop 04/21/19 at 16:18; Status DC Acetaminophen/ Codeine Phosphate (Tylenol #3) 1 tab PRN Q6HRS PRN PO PAIN Last administered on 04/25/19at 08:36; Start 04/21/19 at 20:30 Amlodipine Besylate (Norvasc) 5 mg DAILY PO ; Start 04/22/19 at 09:00; Stop 04/22/19 at 12:59; Status DC Aspirin (Children'S Aspirin) 81 mg DAILY PO ; Start 04/22/19 at 09:00; Stop 04/22/19 at 13:00; Status DC Atorvastatin Calcium (Lipitor) 40 mg DAILY PO ; Start 04/22/19 at 09:00; Stop 04/21/19 at 21:05; Status DC Cyclobenzaprine HCl (Flexeril) 10 mg TID PO ; Start 04/21/19 at 21:00; Stop 04/22/19 at 13:00; Status DC Docusate Sodium (Colace) 100 mg BID PO ; Start 04/21/19 at 21:00; Stop 04/22/19 at 00:29; Status DC Lisinopril (Prinivil) 20 mg BID PO ; Start 04/21/19 at 21:00; Stop 04/22/19 at 13:01; Status DC Metoprolol Succinate (Toprol Xl) 25 mg DAILY PO ; Start 04/22/19 at 09:00; Stop 04/22/19 at 13:01; Status DC Potassium Chloride (Klor-Con) 10 meq DAILY PO ; Start 04/22/19 at 09:00; Stop 04/22/19 at 13:01; Status DC Warfarin Sodium (Coumadin) 5 mg DAILY PO ; Start 04/22/19 at 09:00; Stop 04/21/19 at 20:38; Status DC Glimepiride (Amaryl) 1 mg DAILY PO ; Start 04/22/19 at 09:00; Stop 04/21/19 at 21:05; Status DC Fentanyl Citrate (Fentanyl 2ml Vial) 25 mcg PRN Q4HRS PRN IVP PAIN Last a dministered on 04/22/19at 02:56; Start 04/21/19 at 20:30 Dextrose (Dextrose 50%-Water Syringe) 12.5 gm PRN Q15MIN PRN IV SEE COMMENTS; Start 04/21/19 at 20:30 Warfarin Sodium (Coumadin) 5 mg DAILY16 PO ; Start 04/22/19 at 16:00; Stop 04/22/19 at 12:49; Status DC Warfarin Sodium (Coumadin Per Physician) 1 each PRN DAILY PRN MC SEE COMMENTS Last administered on 04/23/19at 09:46; Start 04/21/19 at 20:45 Atorvastatin Calcium (Lipitor) 40 mg QHS PO ; Start 04/21/19 at 21:15; Stop 04/22/19 at 13:00; Status DC Glimepiride (Amaryl) 1 mg QHS PO ; Start 04/21/19 at 21:15; Stop 04/22/19 at 13:00; Status DC Cephalexin HCl (Keflex) 500 mg TID PO Last administered on 04/25/19at 08:37; Start 04/22/19 at 14:00; Stop 04/25/19 at 10:10; Status DC Warfarin Sodium (Coumadin) 2.5 mg DAILY16 PO Last administered on 04/24/19at 17:14; Start 04/22/19 at 16:00 Lactobacillus Rhamnosus (Culturelle) 1 cap BID PO Last administered on 04/25/19at 08:37; Start 04/23/19 at 12:00 Iohexol (Omnipaque 240 Mg/ml) 50 ml 1X ONCE PO Last administered on 04/23/19 10:15; Start 04/23/19 at 10:15; Stop 04/23/19 at 10:16; Status DC Iohexol (Omnipaque 300 Mg/ml) 60 ml 1X ONCE IV Last administered on 04/23/19at 10:15; Start 04/23/19 at 10:15; Stop 04/23/19 at 10:16; Status DC Atorvastatin Calcium (Lipitor) 40 mg QHS PO Last administered on 04/24/19 20:43; Start 04/23/19 at 21:00 Isosorbide Mononitrate (Imdur) 30 mg DAILY PO Last administered on 04/25/19 08:37; Start 04/23/19 at 12:30 Glimepiride (Amaryl) 2 mg HS PO Last administered on 04/24/19 20:43; Start 04/23/19 at 21:00 Diltiazem HCl (Cardizem Iv Push) 10 mg 1X ONCE IVP Last administered on 04/23/19 16:52; Start 04/23/19 at 16:15; Stop 04/23/19 at 16:16; Status DC Diltiazem HCl 125 mg/Dextrose 125 ml @ 5 mls/hr CONT PRN IV SEE I/O RECORD Last administered on 04/23/19 17:34; Start 04/23/19 at 17:15; Stop 04/25/19 at 10:10; Status DC Metoprolol Tartrate (Lopressor) 25 mg Q6HRS PO Last administered on 04/25/19 06:05; Start 04/23/19 at 18:30 Sodium Chloride 1,000 ml @ 60 mls/hr [id number] IV Last administered on 04/25/19 08:41; Start 04/24/19 at 16:30 Polyethylene Glycol (miraLAX PACKET) 17 gm DAILY PO ; Start 04/25/19 at 10:15 Active Scripts Active Tylenol With Codeine #3 Tablet (Acetaminophen/Codeine Phosphate) 1 Each Tablet 1 Tab PO PRN Q6HRS PRN Cyclobenzaprine Hcl 10 Mg Tablet 1 Tab PO TID Warfarin Sodium 5 Mg Tablet 1 Tab PO DAILY [Enoxaparin Sodium] 80 MG/0.8 ML Disp.syrin 70 Mg SQ Q12HR 3 Days Colace (Docusate Sodium) 100 Mg Capsule 100 Mg PO BID Toprol Xl (Metoprolol Succinate) 25 Mg Tab.er.24h 25 Mg PO DAILY Reported Coumadin (Warfarin Sodium) 2.5 Mg Tablet 1 Tab PO DAILY Glimepiride 1 Mg Tablet 1 Tab PO DAILY Atorvastatin Calcium 40 Mg Tablet 1 Tab PO DAILY Aspirin 81 Mg Tab.chew 1 Tab PO DAILY Amlodipine Besylate 5 Mg Tablet 1 Tab PO DAILY Lisinopril 20 Mg Tablet 1 Tab PO BID Potassium Chloride 10 Meq Tablet.er 1 Tab PO DAILY Vitals/I & O Vital Sign - Last 24 Hours 04/24/19 04/24/19 04/24/19 04/24/19 12:23 14:43 17:15 19:37 Temp 97.7 97.8 97.7 97.8 Pulse 81 60 72 69 Resp 16 16 B/P (MAP) 98/51 (67) 154/67 (96) Pulse Ox 95 97 O2 Delivery Room Air Room Air 04/24/19 04/24/19 04/25/19 04/25/19 19:58 22:38 00:00 02:07 Temp 97.7 97.9 97.7 97.9 Pulse 75 68 55 Resp 16 18 B/P (MAP) 133/71 (91) 133/71 145/65 (91) Pulse Ox 96 97 O2 Delivery Room Air Room Air Room Air 04/25/19 04/25/19 04/25/19 04/25/19 06:05 07:00 08:00 08:37 Temp 98.1 98.1 Pulse 70 62 74 Resp 18 B/P (MAP) 133/60 147/67 (93) 147/67 Pulse Ox 96 O2 Delivery Room Air Room Air 04/25/19 04/25/19 09:36 11:00 Temp 98.4 98.4 Pulse 61 Resp 18 B/P (MAP) 113/69 (84) Pulse Ox 99 O2 Delivery Room Air Room Air Intake and Output 04/24/19 04/24/19 04/25/19 15:00 23:00 07:00 Intake Total 360 ml 120 ml 240 ml Output Total 100 ml Balance 360 ml 120 ml 140 ml KYE ADAMS MD Apr 25, 2019 12:07
[2019-04-25] MEDS: POLYETHYLENE GLYCOL 3350 17 GM PACKET. PO SCH (13:12)
--- NOTE | 2019-04-25 14:16 | PDOC ---
PAM WHIPPLE VP SOFTWARE 04/25/19 1416: CARDIO Progress Notes Date and Time Date of Service 04/25/19 Time of Evaluation 1410 Subjective Subjective: No Chest Pain, No shortness of breath, No Palpitations Vitals Vitals Vital Signs Date Time Temp Pulse Resp B/P (MAP) Pulse Ox O2 Delivery O2 Flow Rate FiO2 04/25/19 13:13 81 04/25/19 11:00 98.4 18 113/69 (84) 99 Room Air 98.4 Weight Weight [ ] Input and Output Intake and Output Intake and Output 04/25/19 07:00 Intake Total 720 ml Output Total 100 ml Balance 620 ml Intake Oral 720 ml Output Urine Total 100 ml # Voids 8 # Bowel Movements 8 Laboratory Labs Laboratory Tests Test 04/24/19 16:25 04/24/19 16:51 04/24/19 20:40 04/25/19 05:30 Stool Occult Blood Positive (NEG) Glucose (Fingerstick) 278 mg/dL (70-99) 241 mg/dL (70-99) White Blood Count 9.1 x10^3/uL (4.0-11.0) Red Blood Count 2.91 x10^6/uL (4.30-5.70) Hemoglobin 7.2 g/dL (13.0-17.5) Hematocrit 22.4 % (39.0-53.0) Mean Corpuscular Volume 77 fL (79-100) Mean Corpuscular Hemoglobin 25 pg (25-35) Mean Corpuscular Hemoglobin Concent 32 g/dL (31-37) Red Cell Distribution Width 18.5 % (11.5-14.5) Platelet Count 394 x10^3/uL (140-400) Prothrombin Time 22.2 SEC (11.7-14.0) Prothromb Time International Ratio 2.0 (0.8-1.1) Sodium Level 137 mmol/L (136-145) Potassium Level 4.2 mmol/L (3.5-5.1) Chloride Level 101 mmol/L (98-107) Carbon Dioxide Level 27 mmol/L (21-32) Anion Gap 9 (6-14) Blood Urea Nitrogen 32 mg/dL (8-26) Creatinine 1.1 mg/dL (0.7-1.3) Estimated GFR (Cockcroft-Gault) 63.2 Glucose Level 102 mg/dL (70-99) Calcium Level 8.5 mg/dL (8.5-10.1) Test 04/25/19 07:28 04/25/19 11:41 Glucose (Fingerstick) 98 mg/dL (70-99) 124 mg/dL (70-99) Microbiology Micro Microbiology 04/21/19 Urine Culture - Final, Complete 04/21/19 Urine Culture Result 1 (MEHDI) - Final, Complete Physical Exam HEENT: Neck Supple W Full Motion Chest: Symmetric LUNGS: Other (diminished bases) Heart: irregularly irregular (AFIB) Abdomen: Soft N/T Extremities: No Calf Tenderness Neurology: alert, oriented, follow commands Assessment Assessment 1. Persistent AFIB; rate now controlled overall. on warfarin for stroke prevention 2. Atypical chest pain: AMI ruled out. Most probably secondary to palpitations. 4. 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 Prefers supportive/palliative care only 5. CAD: unclear details 6. Mild CM: EF 45%. Appears compensated. RA dilation 7. HTN: controlled 8. HLP 9. DM2 10. KEERTHI Recommendations Continue metoprolol for rate control Follow Hemonc recommendation, ?prognosis Palliative care following; possible Hospice as patient does not want aggressive measures. . SHERRELL YU MD 04/25/19 2227: CARDIO Progress Notes Plan Plan Pt. seen and examined. Agree with above JUNIOR SALES REPRESENTATIVE note No new CV issues. Supportive care. Poor prognosis. Possibly going home with hospice. PAM WHIPPLE APRN Apr 25, 2019 14:16 SHERRELL YU MD Apr 25, 2019 22:27
--- NOTE | 2019-04-25 14:28 | NUR ---
SS following up with discharge planning. Pt accepted at [facility]. SS will continue to follow for discharge planning.
[2019-04-25 15:00] VITALS: BP 117/64
--- NOTE | 2019-04-25 15:22 | PDOC ---
Provider Note Provider Note 88 yo man with hx of small cell carcinoma of bladder s/p TURBT at . He declined adjuvant or further surgical treatment at that time. Now with bladder recurrence and osseous mets to left pubic and medial acetabular region. He just began pall RT to bladder pubic and acetabular mets. Day 1 of 5 day course of treatment. Less pain already noted. Ambulating on the floor. Impression: Metastatic small cell carcinoma of bladder doing well with pall RT. Will resume tomorrow 04/26/2019. LYNETTE DAMON MD Apr 25, 2019 15:22
[2019-04-25] MEDS: WARFARIN 2.5 MG TABLET. PO SCH (17:05)
[2019-04-25 19:10] VITALS: BP 133/60
[2019-04-25] MEDS: GLIMEPIRIDE 2 MG TABLET. PO SCH (21:07)
[2019-04-25] MEDS: ATORVASTATIN CALCIUM 40 MG TABLET. PO SCH (21:07)
[2019-04-25] MEDS: METOPROLOL TART IMMED RELEASE 50 MG TABLET. PO SCH (21:09)
[2019-04-25] MEDS ORDERED: POLY17PO28 PO (22:01)
[2019-04-25] MEDS ORDERED: METO50TA6 PO (22:01)
[2019-04-25] MEDS ORDERED: ISOS30TA4 PO (22:01)
--- NOTE | 2019-04-25 22:04 | SNU/HH DC ---
DISCHARGE ORDERS DISCHARGE INFORMATION: DISCHARGE DATE: Apr 26, 2019 FINAL DIAGNOSIS Problems Medical Problems: (1) Acute chest pain Status: Acute (2) Anemia Status: Acute (3) Atrial fibrillation with RVR Status: Acute (4) Congestive heart failure Status: Acute (5) Generalized weakness Status: Acute (6) Hypomagnesemia Status: Acute (7) Left hip pain Status: Acute (8) Renal insufficiency Status: Acute (9) Uncontrolled diabetes mellitus Status: Acute CONDITION ON DISCHARGE: Stable CODE STATUS: Code Status: DNR/DNI MCFP: SNF STAY <30 DAYS: Yes LTAC: ADMIT TO LTAC: No POST DISCHARGE ORDERS: ACTIVITY ORDERS: Activity as tolerated WEIGHT BEARING STATUS: No restrictions DIET AFTER DISCHARGE: ADA WOUND/INCISION CARE: No wound care needed CHECKS AFTER DISCHARGE: CHECKS AFTER DISCHARGE: Check blood press - daily FOLLOW-UP: LAB ORDERS FOR FOLLOW-UP: cbc/cmp weekly/inr weekly ANTICOAGULATION F/U NEEDED: inr weekly,keep 2-3 TREATMENT/EQUIPMENT ORDERS: ADAPTIVE EQUIPMENT NEEDED: None RESPIRATORY EQUIPMENT NEEDED: Oxygen, Nebulizer Physical Therapy For: Evalulation/Treatment Occupational Therapy For: Evaluation/Treatment DISCHARGE MEDICATIONS: Home Meds Active Scripts Isosorbide Mononitrate (ISOSORBIDE MONONITRATE ER) 30 Mg Tab.er.24h, 30 MG PO DAILY for cad for 30 Days, #30 TAB.SR Prov:WALTER RAYMOND MD 04/25/19 Metoprolol Tartrate (METOPROLOL TARTRATE) 50 Mg Tablet, 50 MG PO BID for afib with RVR for 30 Days, #60 TAB Prov:WALTER RAYMOND MD 04/25/19 Polyethylene Glycol 3350 (POLYETHYLENE GLYCOL 3350) 17 Gm Powd.pack, 17 GM PO DAILY for constipation for 30 Days, #30 PKT Prov:WALTER RAYMOND MD 04/25/19 Acetaminophen With Codeine (TYLENOL WITH CODEINE #3 TABLET) 1 Each Tablet, 1 TAB PO PRN Q6HRS PRN for PAIN, #20 TAB Prov:TEE PAUL HORTICULTURAL NURSERY ASSISTANT 04/19/19 Docusate Sodium (COLACE) 100 Mg Capsule, 100 MG PO BID, #60 CAP Prov:FUNMI BUSTAMANTE HORTICULTURAL NURSERY ASSISTANT 08/07/14 Reported Medications Warfarin Sodium (COUMADIN) 2.5 Mg Tablet, 1 TAB PO DAILY for atrial fibrillation, #30 TAB 04/21/19 Glimepiride (GLIMEPIRIDE) 1 Mg Tablet, 1 TAB PO DAILY, #30 TAB 5 Refills 08/04/14 Atorvastatin Calcium (ATORVASTATIN CALCIUM) 40 Mg Tablet, 1 TAB PO DAILY, #30 TAB 5 Refills 08/04/14 Aspirin (ASPIRIN) 81 Mg Tab.chew, 1 TAB PO DAILY, #30 TAB 3 Refills 08/04/14 Amlodipine Besylate (AMLODIPINE BESYLATE) 5 Mg Tablet, 1 TAB PO DAILY, #30 TAB 5 Refills 08/04/14 Lisinopril (LISINOPRIL) 20 Mg Tablet, 1 TAB PO BID, #30 TAB 5 Refills 08/04/14 Discontinued Reported Medications Potassium Chloride (POTASSIUM CHLORIDE) 10 Meq Tablet.er, 1 TAB PO DAILY, #90 TAB 1 Refill 08/04/14 Discontinued Scripts Cyclobenzaprine Hcl (CYCLOBENZAPRINE HCL) 10 Mg Tablet, 1 TAB PO TID, #30 TAB Prov:TEE PAUL APRN 04/19/19 Warfarin Sodium (WARFARIN SODIUM) 5 Mg Tablet, 1 TAB PO DAILY, #30 TAB 1 Refill Prov:FUNMI BUSTAMANTE HORTICULTURAL NURSERY ASSISTANT 08/07/14 [Enoxaparin Sodium] 80 MG/0.8 ML DISP.SYRIN No Conflict Check, 70 MG SQ Q12HR for 3 Days, SYR Prov:FUNMI BUSTAMANTE APRN 08/07/14 Metoprolol Succinate (TOPROL XL) 25 Mg Tab.er.24h, 25 MG PO DAILY, #30 TAB Prov:FUNMI BUSTAMANTE APRN 08/07/14 WALTER RAYMOND MD Apr 25, 2019 22:04
[2019-04-25 22:41] VITALS: BP 140/65
[2019-04-26 02:30] VITALS: BP 142/65
[2019-04-26 07:00] VITALS: BP 162/72
[2019-04-26] MEDS: LACTOBACILLUS RHAMNOSUS GG 1 CAPSULE. PO SCH (08:22)
[2019-04-26] MEDS: POLYETHYLENE GLYCOL 3350 17 GM PACKET. PO SCH (08:22)
[2019-04-26] MEDS: ISOSORBIDE MONONITRATE ER 30 MG TAB.ER.24H PO SCH (08:22)
[2019-04-26] MEDS: METOPROLOL TART IMMED RELEASE 50 MG TABLET. PO SCH (08:22)
--- NOTE | 2019-04-26 10:13 | PDOC ---
PROGRESS NOTES Subjective Subjective no new problems Objective Objective Vital Signs Date Time Temp Pulse Resp B/P (MAP) Pulse Ox O2 Delivery O2 Flow Rate FiO2 04/26/19 08:22 65 162/72 04/26/19 08:00 Room Air 04/26/19 07:00 98.5 17 95 98.5 Intake and Output 04/26/19 06:59 Intake Total 1000 ml Output Total 790 ml Balance 210 ml IV Total 1000 ml Output Urine Total 790 ml Physical Exam Abdomen: Soft, No tenderness Heart: Normal S1, Normal S2 Extremities: No cyanosis, No edema General: Alert, Oriented X3 HEENT: Atraumatic, Mucous membr. moist/pink Lungs: Clear to auscultation MUSCULOSKELETAL: Osteoarthritic changes both hands Neck: Supple, No JVD Neuro: Normal speech Psych/Mental Status: Mental status NL, Mood NL Skin: No breakdown, No significant lesion Diagnosis Problem List Problems Medical Problems: (1) Acute chest pain Status: Acute (2) Anemia Status: Acute (3) Atrial fibrillation with RVR Status: Acute (4) Congestive heart failure Status: Acute (5) Generalized weakness Status: Acute (6) Hypomagnesemia Status: Acute (7) Left hip pain Status: Acute (8) Renal insufficiency Status: Acute (9) Uncontrolled diabetes mellitus Status: Acute Assessment Assessment Problems Medical Problems: (1) Acute chest pain Status: Acute (2) Anemia Status: Acute (3) Atrial fibrillation with RVR Status: Acute (4) Congestive heart failure Status: Acute (5) Generalized weakness Status: Acute (6) Hypomagnesemia Status: Acute (7) Left hip pain Status: Acute (8) Renal insufficiency Status: Acute (9) Uncontrolled diabetes mellitus Status: Acute FINAL IMPRESSION: stage 4 bladder cancer, bone mets 1. Mechanical fall. 2. Left hip pain, rule out fracture. 3. History of bladder cancer, had surgery. 4. Chronic atrial fibrillation, on Coumadin. INR is therapeutic. 5. Hypertension. PLAN:d/c to [facility] today after radiation treatment cr 1.3 stable d/c iv fluids pallitive radiation, daily for 5 treatments. miralax for constipation. urine mixed juanjo 25,000 ,d/c keflex labs ok ,mild anemia abnormal pelvic bone suspecious for mets. h/o bladder cancer.with recreance, stage 4 bone+spleen mets oncology consult.appreciated. 45% ejf on ECHO. DNR. At this time is admit to hospital, was seen by Orthopedic, scheduled for MRI. PT/OT and continue Coumadin, monitor INR and see how he improves in the next 24-48 hours. Plan Plan of Care Problems Medical Problems: (1) Acute chest pain Status: Acute (2) Anemia Status: Acute (3) Atrial fibrillation with RVR Status: Acute (4) Congestive heart failure Status: Acute (5) Generalized weakness Status: Acute (6) Hypomagnesemia Status: Acute (7) Left hip pain Status: Acute (8) Renal insufficiency Status: Acute (9) Uncontrolled diabetes mellitus Status: Acute Comment Review of Relevant I have reviewed the following items mary (where applicable) has been applied. Labs Laboratory Tests Test 04/25/19 11:41 04/25/19 16:49 04/25/19 21:09 04/26/19 07:36 Glucose (Fingerstick) 124 mg/dL (70-99) 200 mg/dL (70-99) 271 mg/dL (70-99) 118 mg/dL (70-99) Microbiology 04/21/19 Urine Culture - Final, Complete 04/21/19 Urine Culture Result 1 (MEHDI) - Final, Complete Medications Current Medications Metoprolol Tartrate (Lopressor) 50 mg BID PO Last administered on 04/26/19at 08:22; Start 04/25/19 at 21:00 Polyethylene Glycol (miraLAX PACKET) 17 gm DAILY PO Last administered on 04/26/19at 08:22; Start 04/25/19 at 10:15 Vitals/I & O Vital Sign - Last 24 Hours 04/25/19 04/25/19 04/25/19 04/25/19 11:00 13:13 15:00 19:10 Temp 98.4 98.1 97.8 98.4 98.1 97.8 Pulse 61 81 69 82 Resp 18 18 18 B/P (MAP) 113/69 (84) 117/64 (81) 133/60 (84) Pulse Ox 99 98 96 O2 Delivery Room Air Room Air Room Air 04/25/19 04/25/19 04/25/19 04/26/19 20:00 21:09 22:41 02:30 Temp 98.6 98.2 98.6 98.2 Pulse 70 76 65 Resp 20 17 B/P (MAP) 167/71 140/65 (90) 142/65 (90) Pulse Ox 98 95 O2 Delivery Room Air Room Air Room Air 04/26/19 04/26/19 04/26/19 04/26/19 07:00 08:00 08:22 08:22 Temp 98.5 98.5 Pulse 65 65 65 Resp 17 B/P (MAP) 162/72 (102) 162/72 162/72 Pulse Ox 95 O2 Delivery Room Air Room Air Intake and Output 04/25/19 04/25/19 04/26/19 14:59 22:59 06:59 Intake Total 1000 ml Output Total 150 ml 340 ml 300 ml Balance -150 ml -340 ml 700 ml Nutrition Consultation Dietary Evaluation: Recommendations by RD: Increase Calorie Intake, Protein supplementation Comments: REC liberalize diet to regular to allow more food options, honor food preferences, and provide snacks as requested REC Ensure TID (vanilla) Expected Outcomes/Goals: PO intake to meet >75% est needs Interpretation of weight loss: >7.5% in 3 months Malnutrition Findings: Weight Status: Appropriate WALTER RAYMOND MD Apr 26, 2019 10:13
--- NOTE | 2019-04-26 10:30 | PDOC ---
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 ROS - no CP Objective Objective Vital Signs Date Time Temp Pulse Resp B/P (MAP) Pulse Ox O2 Delivery O2 Flow Rate FiO2 04/26/19 08:22 65 162/72 04/26/19 08:00 Room Air 04/26/19 07:00 98.5 17 95 98.5 04/21/19 17:00 2.0 Intake and Output 04/26/19 06:59 Intake Total 1000 ml Output Total 790 ml Balance 210 ml IV Total 1000 ml Output Urine Total 790 ml Physical Exam General: Alert, Oriented X3, No acute distress Neuro: Normal speech Assessment Assessment Problems Medical Problems: (1) Acute chest pain Status: Acute (2) Anemia Status: Acute (3) Atrial fibrillation with RVR Status: Acute (4) Congestive heart failure Status: Acute (5) Generalized weakness Status: Acute (6) Hypomagnesemia Status: Acute (7) Left hip pain Status: Acute (8) Renal insufficiency Status: Acute (9) Uncontrolled diabetes mellitus Status: Acute IMPRESSION AND PLAN: 1. 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 He was initially diagnosed with localized urinary bladder tumor in 2017 and declined chemotherapy and surgery and has been on supportive care since then. He has now developed metastatic disease consistent with stage IV malignancy. He continues to prefer supportive care only. I have recommended Radiation Oncology consultation for palliative radiation therapy to the left hip and then palliative care consult to proceed with hospice. I discussed with the patient and his daughter in detail and they understand and agree with the plan. 2. Bone metastasis. Appreciate Radiation Oncology consultation for palliative radiation therapy. i d/w Dr Ray. Bone pains stable. 3. Atrial fibrillation. Continue management per Cardiology. Comment Review of Relevant I have reviewed the following items mary (where applicable) has been applied. Labs Laboratory Tests Test 04/24/19 12:03 04/24/19 16:25 04/24/19 16:51 04/24/19 20:40 Glucose (Fingerstick) 168 mg/dL (70-99) 278 mg/dL (70-99) 241 mg/dL (70-99) Stool Occult Blood Positive (NEG) Test 04/25/19 05:30 04/25/19 07:28 04/25/19 11:41 04/25/19 16:49 White Blood Count 9.1 x10^3/uL (4.0-11.0) Red Blood Count 2.91 x10^6/uL (4.30-5.70) Hemoglobin 7.2 g/dL (13.0-17.5) Hematocrit 22.4 % (39.0-53.0) Mean Corpuscular Volume 77 fL (79-100) Mean Corpuscular Hemoglobin 25 pg (25-35) Mean Corpuscular Hemoglobin Concent 32 g/dL (31-37) Red Cell Distribution Width 18.5 % (11.5-14.5) Platelet Count 394 x10^3/uL (140-400) Prothrombin Time 22.2 SEC (11.7-14.0) Prothromb Time International Ratio 2.0 (0.8-1.1) Sodium Level 137 mmol/L (136-145) Potassium Level 4.2 mmol/L (3.5-5.1) Chloride Level 101 mmol/L (98-107) Carbon Dioxide Level 27 mmol/L (21-32) Anion Gap 9 (6-14) Blood Urea Nitrogen 32 mg/dL (8-26) Creatinine 1.1 mg/dL (0.7-1.3) Estimated GFR (Cockcroft-Gault) 63.2 Glucose Level 102 mg/dL (70-99) Calcium Level 8.5 mg/dL (8.5-10.1) Glucose (Fingerstick) 98 mg/dL (70-99) 124 mg/dL (70-99) 200 mg/dL (70-99) Test 04/25/19 21:09 04/26/19 07:36 Glucose (Fingerstick) 271 mg/dL (70-99) 118 mg/dL (70-99) Laboratory Tests Test 04/25/19 11:41 04/25/19 16:49 04/25/19 21:09 04/26/19 07:36 Glucose (Fingerstick) 124 mg/dL (70-99) 200 mg/dL (70-99) 271 mg/dL (70-99) 118 mg/dL (70-99) Microbiology 04/21/19 Urine Culture - Final, Complete 04/21/19 Urine Culture Result 1 (MEHDI) - Final, Complete Medications Current Medications Diltiazem HCl (Cardizem Iv Push) 10 mg 1X ONCE IVP Last administered on 04/21/19at 14:11; Start 04/21/19 at 14:00; Stop 04/21/19 at 14:02; Status DC Magnesium Sulfate 50 ml @ 25 mls/hr 1X ONCE IV Last administered on 04/21/19at 16:09; Start 04/21/19 at 16:15; Stop 04/21/19 at 18:14; Status DC Acetaminophen/ Hydrocodone Bitart (Lortab 5/325) 1 tab 1X ONCE PO ; Start 04/21/19 at 16:15; Stop 04/21/19 at 16:18; Status DC Fentanyl Citrate (Fentanyl 2ml Vial) 50 mcg 1X ONCE IVP Last administered on 04/21/19at 16:25; Start 04/21/19 at 16:15; Stop 04/21/19 at 16:18; Status DC Acetaminophen/ Codeine Phosphate (Tylenol #3) 1 tab PRN Q6HRS PRN PO PAIN Last administered on 04/25/19at 08:36; Start 04/21/19 at 20:30 Amlodipine Besylate (Norvasc) 5 mg DAILY PO ; Start 04/22/19 at 09:00; Stop 04/22/19 at 12:59; Status DC Aspirin (Children'S Aspirin) 81 mg DAILY PO ; Start 04/22/19 at 09:00; Stop 04/22/19 at 13:00; Status DC Atorvastatin Calcium (Lipitor) 40 mg DAILY PO ; Start 04/22/19 at 09:00; Stop 04/21/19 at 21:05; Status DC Cyclobenzaprine HCl (Flexeril) 10 mg TID PO ; Start 04/21/19 at 21:00; Stop 04/22/19 at 13:00; Status DC Docusate Sodium (Colace) 100 mg BID PO ; Start 04/21/19 at 21:00; Stop 04/22/19 at 00:29; Status DC Lisinopril (Prinivil) 20 mg BID PO ; Start 04/21/19 at 21:00; Stop 04/22/19 at 13:01; Status DC Metoprolol Succinate (Toprol Xl) 25 mg DAILY PO ; Start 04/22/19 at 09:00; Stop 04/22/19 at 13:01; Status DC Potassium Chloride (Klor-Con) 10 meq DAILY PO ; Start 04/22/19 at 09:00; Stop 04/22/19 at 13:01; Status DC Warfarin Sodium (Coumadin) 5 mg DAILY PO ; Start 04/22/19 at 09:00; Stop 04/21 at 20:38; Status DC Glimepiride (Amaryl) 1 mg DAILY PO ; Start 04/22/19 at 09:00; Stop 04/21/19 at 21:05; Status DC Fentanyl Citrate (Fentanyl 2ml Vial) 25 mcg PRN Q4HRS PRN IVP PAIN Last administered on 04/22/19at 02:56; Start 04/21/19 at 20:30 Dextrose (Dextrose 50%-Water Syringe) 12.5 gm PRN Q15MIN PRN IV SEE COMMENTS; Start 04/21/19 at 20:30 Warfarin Sodium (Coumadin) 5 mg DAILY16 PO ; Start 04/22/19 at 16:00; Stop 04/22/19 at 12:49; Status DC Warfarin Sodium (Coumadin Per Physician) 1 each PRN DAILY PRN MC SEE COMMENTS Last administered on 04/23/19at 09:46; Start 04/21/19 at 20:45 Atorvastatin Calcium (Lipitor) 40 mg QHS PO ; Start 04/21/19 at 21:15; Stop 04/22/19 at 13:00; Status DC Glimepiride (Amaryl) 1 mg QHS PO ; Start 04/21/19 at 21:15; Stop 04/22/19 at 13:00; Status DC Cephalexin HCl (Keflex) 500 mg TID PO Last administered on 04/25/19at 08:37; Start 04/22/19 at 14:00; Stop 04/25/19 at 10:10; Status DC Warfarin Sodium (Coumadin) 2.5 mg DAILY16 PO Last administered on 04/25/19at 17:05; Start 04/22/19 at 16:00 Lactobacillus Rhamnosus (Culturelle) 1 cap BID PO Last administered on 04/26/19at 08:22; Start 04/23/19 at 12:00 Iohexol (Omnipaque 240 Mg/ml) 50 ml 1X ONCE PO Last administered on 04/23/19at 10:15; Start 04/23/19 at 10:15; Stop 04/23/19 at 10:16; Status DC Iohexol (Omnipaque 300 Mg/ml) 60 ml 1X ONCE IV Last administered on 04/23/19at 10:15; Start 04/23/19 at 10:15; Stop 04/23/19 at 10:16; Status DC Atorvastatin Calcium (Lipitor) 40 mg QHS PO Last administered on 04/25/19at 2 1:07; Start 04/23/19 at 21:00 Isosorbide Mononitrate (Imdur) 30 mg DAILY PO Last administered on 04/26/19 08:22; Start 04/23/19 at 12:30 Glimepiride (Amaryl) 2 mg HS PO Last administered on 04/25/19 21:07; Start 04/23/19 at 21:00 Diltiazem HCl (Cardizem Iv Push) 10 mg 1X ONCE IVP Last administered on 04/23/19at 16:52; Start 04/23/19 at 16:15; Stop 04/23/19 at 16:16; Status DC Diltiazem HCl 125 mg/Dextrose 125 ml @ 5 mls/hr CONT PRN IV SEE I/O RECORD Last administered on 04/23/19at 17:34; Start 04/23/19 at 17:15; Stop 04/25/19 at 10:10; Status DC Metoprolol Tartrate (Lopressor) 25 mg Q6HRS PO Last administered on 04/25/19at 13:13; Start 04/23/19 at 18:30; Stop 04/25/19 at 16:55; Status DC Sodium Chloride 1,000 ml @ 60 mls/hr [id number] IV Last administered on 04/25/19at 08:41; Start 04/24/19 at 16:30; Stop 04/25/19 at 22:05; Status DC Polyethylene Glycol (miraLAX PACKET) 17 gm DAILY PO Last administered on 04/26/19at 08:22; Start 04/25/19 at 10:15 Metoprolol Tartrate (Lopressor) 50 mg BID PO Last administered on 04/26/19at 08:22; Start 04/25/19 at 21:00 Active Scripts Active Isosorbide Mononitrate Er (Isosorbide Mononitrate) 30 Mg Tab.er.24h 30 Mg PO DAILY 30 Days Metoprolol Tartrate 50 Mg Tablet 50 Mg PO BID 30 Days Polyethylene Glycol 3350 17 Gm Powd.pack 17 Gm PO DAILY 30 Days Tylenol With Codeine #3 Tablet (Acetaminophen/Codeine Phosphate) 1 Each Tablet 1 Tab PO PRN Q6HRS PRN Colace (Docusate Sodium) 100 Mg Capsule 100 Mg PO BID Reported Coumadin (Warfarin Sodium) 2.5 Mg Tablet 1 Tab PO DAILY Glimepiride 1 Mg Tablet 1 Tab PO DAILY Atorvastatin Calcium 40 Mg Tablet 1 Tab PO DAILY Aspirin 81 Mg Tab.chew 1 Tab PO DAILY Amlodipine Besylate 5 Mg Tablet 1 Tab PO DAILY Lisinopril 20 Mg Tablet 1 Tab PO BID Vitals/I & O Vital Sign - Last 24 Hours 04/25/19 04/25/19 04/25/19 04/25/19 11:00 13:13 15:00 19:10 Temp 98.4 98.1 97.8 98.4 98.1 97.8 Pulse 61 81 69 82 Resp 18 18 18 B/P (MAP) 113/69 (84) 117/64 (81) 133/60 (84) Pulse Ox 99 98 96 O2 Delivery Room Air Room Air Room Air 04/25/19 04/25/19 04/25/19 04/26/19 20:00 21:09 22:41 02:30 Temp 98.6 98.2 98.6 98.2 Pulse 70 76 65 Resp 20 17 B/P (MAP) 167/71 140/65 (90) 142/65 (90) Pulse Ox 98 95 O2 Delivery Room Air Room Air Room Air 04/26/19 04/26/19 04/26/19 04/26/19 07:00 08:00 08:22 08:22 Temp 98.5 98.5 Pulse 65 65 65 Resp 17 B/P (MAP) 162/72 (102) 162/72 162/72 Pulse Ox 95 O2 Delivery Room Air Room Air Intake and Output 04/25/19 04/25/19 04/26/19 14:59 22:59 06:59 Intake Total 1000 ml Output Total 150 ml 340 ml 300 ml Balance -150 ml -340 ml 700 ml Nutrition Consultation Dietary Evaluation: Recommendations by RD: Increase Calorie Intake, Protein supplementation Comments: REC liberalize diet to regular to allow more food options, honor food preferences, and provide snacks as requested REC Ensure TID (vanilla) Expected Outcomes/Goals: PO intake to meet >75% est needs Interpretation of weight loss: >7.5% in 3 months Malnutrition Findings: Weight Status: Appropriate KYE ADAMS MD Apr 26, 2019 10:30
[2019-04-26 11:00] VITALS: BP 155/64
--- NOTE | 2019-04-26 11:51 | NUR ---
SS following up with discharge planning. Discharge orders received for [facility], ; fax [phone]. SS phoned and faxed discharge orders to [facility]. Pt will discharge today and go to [facility] at 1500 via [facility] transport, [id number]. Pt, pt's daughter, and pt's RN notified.
--- NOTE | 2019-04-26 13:05 | NUR ---
Report given to VERNON Echols at PP regarding patient and the current plan of care.
--- NOTE | 2019-04-26 13:08 | PDOC ---
Provider Note Provider Note 88 yo man with hx of small cell carcinoma of bladder s/p TURBT at . He declined adjuvant or further surgical treatment at that time. Now with bladder recurrence and osseous mets to left pubic and medial acetabular region. He began pall RT to bladder pubic and acetabular mets 04/25/2019. Day 2 of 5 day course of treatment today. Less pain already noted. Decreased by 30 to 40% Ambulated on the floor yesterday. Impression: Metastatic small cell carcinoma of bladder doing well with pall RT. Anticipate dc to [facility] later today Will resume Monday04/29/2019. LYNETTE DAMON MD Apr 26, 2019 13:08
--- NOTE | 2019-04-26 15:05 | NUR ---
Patient picked up by transportation. Patients belongings with patient at this time. No issues present.
--- NOTE | 2019-04-29 09:50 | PDOC ---
Provider Note Provider Note Discharge summary dictated.#[id number]. WALTER RAYMOND MD Apr 29, 2019 09:50
--- NOTE | 2019-04-29 10:15 | DS ---
DATE OF DISCHARGE: 04/26/2019 ATTENDING PHYSICIAN: Magda Garcia MD PRIMARY PHYSICIAN: Dr. Anderson. REASON FOR ADMISSION TO THE HOSPITAL: Mechanical fall, severe pain in the left hip. CONSULTATIONS: 1. Orthopedic. 2. Oncology. 3. Radiation Oncology. 4. Cardiology. PROCEDURES DONE: 1. CT head. 2. MRI of the left hip. 3. CT chest, abdomen and pelvis. HOSPITAL COURSE: The patient is an 88-year-old male who fell and had a lot of pain. X-ray shows no fracture, was still having lot of pain, was admitted to the hospital, had seen by Orthopedic and MRI, which shows no fractures, but shows some metastasis to the pelvic bone and to the hip bone. The patient has a history of bladder cancer 3 years ago. He declined further treatment at that time. The patient had a CT scan of the chest, abdomen and pelvis, which shows progression of the bladder tumor, 5 cm and with metastasis to the pelvic bone, hip, as well as to the spleen. The patient was seen by Oncology who recommended Radiation Oncology for palliative treatment for pain. The patient was seen by Radiation Oncology, recommended 5 treatments for palliation for pain control. The patient was also seen by Cardiology, had a history of atrial fibrillation. Echo shows 45% ejection fraction. The patient is on Coumadin for chronic anticoagulation. INR was therapeutic. The patient needed a couple of more treatments of radiation and therapy, was discharged to custodial. FINAL DIAGNOSES: 1. Left hip pelvic pain secondary to bone metastasis. 2. History of bladder cancer with metastasis to the bones as well as spleen,stage 4. 3. Chronic atrial fibrillation. 4. Chronic systolic heart failure. 5. Bladder cancer with recurrence. DISPOSITION: [facility], couple of more radiation treatments and PT, OT and will go home after therapeutic results. MAGDA GARCIA MD DR: JUAN DAVID/deshaun JOB#: [id number] / [id number] ARACELI Foy
[2019-04-30] MEDS ORDERED: DOCU-109 PO (13:18)
== END 2019-04-26 14:55 | DRG 542 ==
LOC: ER 13:30 → 1 WEST ICU 15:27 → 2 SOUTH 04-22 16:20
PROVIDERS: ADMIT Internal Medicine; ATTEND Internal Medicine
DX: C79.51 Secondary malignant neoplasm of bone (principal); N17.0 Acute kidney failure with tubular necrosis; I48.20 Chronic atrial fibrillation, unspecified; I50.22 Chronic systolic (congestive) heart failure; C67.9 Malignant neoplasm of bladder, unspecified; D50.9 Iron deficiency anemia, unspecified; E11.65 Type 2 diabetes mellitus with hyperglycemia; E78.00 Pure hypercholesterolemia, unspecified; R07.89 Other chest pain; E78.5 Hyperlipidemia, unspecified; E83.42 Hypomagnesemia; G89.3 Neoplasm related pain (acute) (chronic); I11.0 Hypertensive heart disease with heart failure; M19.90 Unspecified osteoarthritis, unspecified site; I25.10 Atherosclerotic heart disease of native coronary artery without angina pectoris; J44.9 Chronic obstructive pulmonary disease, unspecified; K21.9 Gastro-esophageal reflux disease without esophagitis; K59.00 Constipation, unspecified; W01.0XXA Fall on same level from slipping, tripping and stumbling without subsequent striking against object, initial encounter; Z79.01 Long term (current) use of anticoagulants; Z80.52 Family history of malignant neoplasm of bladder; Z82.49 Family history of ischemic heart disease and other diseases of the circulatory system; Z90.49 Acquired absence of other specified parts of digestive tract; Z88.0 Allergy status to penicillin; Y93.89 Activity, other specified; Y92.89 Other specified places as the place of occurrence of the external cause; Y99.8 Other external cause status
CPT/HCPCS: 36415; 70450; 71045; 71260; 73502; 73718; 74177; 77290; 77295; 77300; 77334; 77412; 80048; 80053; 81001; 82274; 82550; 82962; 83690; 83735; 83880; 84443; 84484; 85007; 85025; 85027; 85610; 87086; 93005; 93306; 96365; 96375; J3010; J3475; J3490; J7030; Q9966; Q9967; 97116; 97530; 97535; 99291-25; G0378

== ENCOUNTER → 2019-05-23 | Outpatient (CLI) | payer MEDICARE ==
[2019-05-20 14:27] VITALS: BP 128/69
[~2019-05-23] MED LIST changes: +POLY17PO28 PO; +WARF2.5T83 PO
[2019-05-23 06:27] LABS: PROTHROMBIN TIME PATIENT 20.7 SEC (11.7-14.0)
== END | disposition home or self-care (01) ==
LOC: SPEC 02:05 → EDSTATUS 05-24 10:24
PROVIDERS: ATTEND Internal Medicine
DX: I48.91 Unspecified atrial fibrillation (principal)
CPT/HCPCS: 36415; 85610